=== PATIENT | male | born 1970 | race Caucasian/White ===

== ENCOUNTER 2020-01-06 23:07 | Emergency (ER) | payer OTHER ==
[~2020-01-06 23:07] MED LIST: LIDOCAINE PATCH REMOVAL MC SCH
--- NOTE | 2020-01-06 23:25 | PDOC ---
History of Present Illness - General Chief Complaint: Chest Pain Stated Complaint: L ARM NUMBNESS Time Seen by Provider: 01/06/20 23:25 - History of Present Illness Initial Comments: 01/06/20 23:42 49 year old man with a history of HTN, HLD, recent COVID dx (on eliquis) who presents with L arm numbness and some weakness with L shoulder pain worse today. 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 ROS GENERAL/CONSTITUTIONAL: No fever or chills. + weakness. HEAD, EYES, EARS, NOSE AND THROAT: No change in vision. No ear pain or discharge. No sore throat. CARDIOVASCULAR: No chest pain or shortness of breath RESPIRATORY: No cough, wheezing, or hemoptysis. GASTROINTESTINAL: No nausea, vomiting, diarrhea or constipation. GENITOURINARY: No dysuria, frequency, or change in urination. MUSCULOSKELETAL: + joint or muscle swelling or pain. No neck or back pain. SKIN: No rash NEUROLOGIC: No headache, vertigo, loss of consciousness, or change in strength/sensation. ENDOCRINE: No increased thirst. No abnormal weight change HEMATOLOGIC/LYMPHATIC: No anemia, easy bleeding, or history of blood clots. ALLERGIC/IMMUNOLOGIC: No hives or skin allergy. PE GENERAL: Awake, alert, and fully oriented, in no acute distress HEAD: No signs of trauma, normocephalic, atraumatic EYES: EOMI, sclera anicteric, conjunctiva clear ENT: oropharynx clear without exudates. Moist mucosa NECK: Normal ROM, supple LUNGS: No distress, speaks full sentences, clear to auscultation bilaterally HEART: Regular rate and rhythm, normal S1 and S2, no murmurs, rubs or gallops, peripheral pulses normal and equal bilaterally. L trapezius ttp ABDOMEN: Soft, nontender. No guarding, no rebound. No masses EXTREMITIES : Normal inspection, Normal range of motion, no edema. No clubbing or cyanosis. NEUROLOGICAL: Cranial nerves II through XII grossly intact. Normal speech, normal gait, + decreased sensation of the L arm SKIN: Warm, Dry, normal turgor, no rashes or lesions noted Assessment and Plan 49 year old man with a history of HTN, HLD, recent COVID dx (on eliquis) who presents with L arm numbness and some weakness with L shoulder pain worse today. Consider radiculopathy vs msk/spasm vs intracranial pathology Tlyneol and lidocaine patch for possible msk CT cervical spine: No acute fracture or traumatic malalignment. Minimal spondylosis. Straightening of cervical lordosis, possibly due to positioning or muscle spasm. Two right tracheal diverticula, the lower icompletely seen. CT head : wnl Patient complains of persistent change of sensation/numbness of the L arm Likely will admit for MRI and neuro workup Patient would like to AMA. Discussion held with daughter and Thai speaking nursing staff Risks of leaving AMA discussed with patient, including stroke, cardiac or respiratory arrest, permanent disability and . Patient expressed understanding, exhibited capacity and still decided to AMA. Strict return precautions provided Past History - Medical History Allergies/Adverse Reactions: Allergies Allergy/AdvReac Type Severity Reaction Status Date / Time No Known Allergies Allergy Verified 01/06/20 23:24 Cardiac Disorders: Yes COPD: No - Surgical History Cardiac Surgery: Yes - Psycho-Social/Smoking History Smoking History: Never smoked - Substance Abuse Hx (Audit-C & DAST Scrn) How often the patient has a drink containing alcohol: Never Score: In Men: 4 or > Positive; In Women: 3 or > Positive: 0 Screen Result (Pos requires Nsg. Audit-10AR): Negative In the last yr the pt used illegal drug/Rx for NonMed reason: No Score: Yes response is considered Positive: 0 Screen Result (Positive result requires Nsg. DAST-10): Negative *Physical Exam - Vital Signs Last Vital Signs Temp Pulse Resp BP Pulse Ox 98.0 F 66 18 134/90 99 01/06/20 23:22 01/06/20 23:22 01/06/20 23:22 01/06/20 23:22 01/06/20 23:22 ED Treatment Course - LABORATORY CBC & Chemistry Diagram: 01/06/20 23:48 01/06/20 23:48 Discharge - Discharge Information Problems reviewed: Yes Clinical Impression/Diagnosis: Left arm numbness Condition: Stable Disposition: AGAINST MEDICAL ADVICE - Follow up/Referral Referrals: Pedro Lomax MD [Primary Care Provider] - - Patient Discharge Instructions Patient Printed Discharge Instructions: DI for Numbness/tingling Additional Instructions: You were seen in the ER for complaints of left arm numbness Your CT head, cervical spine and labwork was within normal You still expressed numbness after lidocaine patch and pain control You desire a Neurology referral through your Family Doctor You express understanding that the risks of leaving against medical advise include, stroke, worsening deficit, heart attack, permanent disability or . You still wish to leave AMA Please see your Family Doctor within 5 days. Return to the ER if you have worsening numbness, weakness or any other concerning symptoms. Usted fue visto en la felipe de emergencias por quejas de entumecimiento del brazo noris Torres alden de CT, columna cervical y anlisis de laboratorio estaban dentro de lo normal An expres entumecimiento despus del parche de lidocana y el control del dolor. Desea mary ellen referencia de neurologa a travs de torres mdico de sonam Usted expresa torres comprensin de que los riesgos de abandonar el consejo mdico incluyen, accidente cerebrovascular, empeoramiento del dficit, ataque cardaco, discapacidad permanente o muerte. An deseas irte de AMA Consulte a torres mdico de sonam dentro de los 5 haider. Regrese a la felipe de emergencias si empeora el entumecimiento, la debilidad o cualquier otro sntoma relacionado. - Post Discharge Activity
[2020-01-06 23:28] VITALS: BP 134/90; PULSE 66; TEMP 98; BMI 29.9
--- NOTE | 2020-01-06 23:41 | PDOC ---
Attending Attestation - Resident Resident Name: Renee Williamson - ED Attending Attestation I have performed the following: I have examined & evaluated the patient, The case was reviewed & discussed with the resident, I agree w/resident's findings & plan - HPI HPI: 01/07/20 02:19 see resident hpi - Physicial Exam PE: 01/07/20 02:19 see resident exam - Medical Decision Making 01/07/20 02:19 49-year-old male with recent history of COVID-19 infection currently on anticoagulation complaining of pain to the left upper back and shoulder region with intermittent numbness to the left arm CT scans of the head and cervical spine show no significant acute abnormality Ultrasound shows no DVT In light of patient's age and recent COVID infection plan for observation and MRI for further evaluation/TIA work-up Discharge - Discharge Information Problems reviewed: Yes Clinical Impression/Diagnosis: Left arm numbness Condition: Stable Disposition: AGAINST MEDICAL ADVICE - Follow up/Referral Referrals: Pedro Lomax MD [Primary Care Provider] - - Patient Discharge Instructions Patient Printed Discharge Instructions: DI for Numbness/tingling Additional Instructions: You were seen in the ER for complaints of left arm numbness Your CT head, cervical spine and labwork was within normal You still expressed numbness after lidocaine patch and pain control You desire a Neurology referral through your Family Doctor You express understanding that the risks of leaving against medical advise include, stroke, worsening deficit, heart attack, permanent disability or . You still wish to leave AMA Please see your Family Doctor within 5 days. Return to the ER if you have worsening numbness, weakness or any other concerning symptoms. Usted fue visto en la felipe de emergencias por quejas de entumecimiento del brazo noris Marquis alden de CT, columna cervical y anlisis de laboratorio estaban dentro de lo normal An expres entumecimiento despus del parche de lidocana y el control del dolor. Desea mary ellen referencia de neurologa a travs de marquis mdico de sonam Usted expresa marquis comprensin de que los riesgos de abandonar el consejo mdico incluyen, accidente cerebrovascular, empeoramiento del dficit, ataque cardaco, discapacidad permanente o muerte. An deseas irte de AMA Consulte a marquis mdico de sonam dentro de los 5 haider. Regrese a la feilpe de emergencias si empeora el entumecimiento, la debilidad o cualquier otro sntoma relacionado. - Post Discharge Activity
[2020-01-06] MEDS ORDERED: ACETAMINOPHEN 325 MG TABLET (FP) PO ONE (23:44)
[2020-01-06] MEDS ORDERED: LIDOCAINE 5% TOPICAL PATCH TP ONE (23:44)
[2020-01-06 23:55] LABS: BASO % 0.3 % (0-2.0); EOS % 1.7 % (0-4.5); HEMATOCRIT 44.4 % (35.4-49); HEMOGLOBIN 14.4 GM/dL (11.7-16.9); LYMPH % 38.2 % (8-40); MCH 27.3 pg (25.7-33.7); MCHC 32.4 g/dl (32.0-35.9); MEAN CELL VOLUME 84.3 fl (80-96); MEAN PLT VOLUME 8.8 fl (7.5-11.1); MONO % 8.9 % (3.8-10.2); NEUT % 50.9 % (42.8-82.8); PLATELET COUNT 253 K/MM3 (134-434); RBC 5.27 M/mm3 (4.00-5.60); RDW 14.5 % (11.9-15.9); WHITE BLOOD COUNT 10.2 K/mm3 (4.0-10.0)
[2020-01-07 00:07] LABS: INR 1.28 (0.83-1.09); PROTHROMBIN TIME (PATIENT) 15.2 SEC (9.7-13.0)
[2020-01-07 00:10] LABS: ACTIVATED PTT 31.8 SECONDS (25.2-36.5)
[2020-01-07 00:39] LABS: ALBUMIN 3.7 g/dl (3.4-5.0); ALK PHOS 74 U/L (45-117); ANION GAP 5 MMOL/L (8-16); BILIRUBIN,TOTAL 0.2 mg/dL (0.2-1); BLOOD UREA NITROGEN 15.7 mg/dL (7-18); CHLORIDE 107 mmol/L (98-107); CO2 26 mmol/L (21-32); CREATININE 0.9 mg/dL (0.55-1.3); GLUCOSE,RANDOM 83 mg/dL (74-106); POTASSIUM 4.5 mmol/L (3.5-5.1); SGOT/AST 43 U/L (15-37); SGPT/ALT 65 U/L (13-61); SODIUM 138 mmol/L (136-145); TOT PROT 7.5 g/dl (6.4-8.2)
[2020-01-07] MEDS ORDERED: LIDOCAINE 5% TOPICAL PATCH ONE (00:41)
[2020-01-07] MEDS ORDERED: ACETAMINOPHEN 325 MG TABLET (FP) ONE (00:41)
--- NOTE | 2020-01-07 11:53 | EKG ---
Test Reason : Blood Pressure : / mmHG Vent. Rate : 059 BPM Atrial Rate : 059 BPM P-R Int : 160 ms QRS Dur : 098 ms QT Int : 402 ms P-R-T Axes : 059 025 008 degrees QTc Int : 397 ms SINUS BRADYCARDIA OTHERWISE NORMAL ECG NO PREVIOUS ECGS AVAILABLE Confirmed by LINNEA UMAÑA MD ([id number]) on 01/07/2020 11:52:47 AM Referred By: Confirmed By:LINNEA UMAÑA MD
== END 2020-01-07 02:45 | disposition left against medical advice (07) ==
LOC: JER 23:07
DX: R20.2 Paresthesia of skin (principal)
CPT/HCPCS: 36415; 70450-TC; 71045-TC-FY; 72125-TC; 80053; 84484; 85025; 85610; 85730; 93005; 93010; 93971; 99285-25

== ENCOUNTER 2020-01-30 02:52 | Inpatient (IN) | payer OTHER ==
[2020-01-30] MEDS ORDERED: DEXAMETHASONE SOD PHOSPHATE 10 MG/1 ML VIAL IVPUSH ONE (04:04)
[2020-01-30] MEDS ORDERED: DEXAMETHASONE SOD PHOSPHATE 10 MG/1 ML VIAL ONE (04:13)
--- NOTE | 2020-01-30 04:23 | PDOC ---
History of Present Illness - General Chief Complaint: Pain, Acute Stated Complaint: PAIN Time Seen by Provider: 01/30/20 03:16 History Source: Film Processing Supervisor Used ([id number]) Exam Limitations: Language Barrier - History of Present Illness Initial Comments: 01/30/20 04:09 Jorge Reddy is a 49 Y Khmer speaking M with a PMH of HTN, HLD, Covid + (on eliquis), presented with 2 months of worsening pain of L. shoulder radiating to the neck and arm. Churner service was used to communicate with the patient ([id number]). Patient reports that his pain started two months ago, has been progr essively getting worse. since 3days the pain has been unbearable. He is unable to sleep, sit still, or move around due to severe pain. He reports his pain is sharp and crampy, not relieved or worsened with anything. The pain is constant. It is associated with numbness below the elbow radiating to fingers, weakness of hand and fingers, and constant tingling sensation of the forearm and fingers. 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 Patient was here on 01/06/20 with the same complaint. CT cervical spine: minimal spondylosis, no acute fracture or traumatic malalignment. CT head: no acute intracranial pathology. Planed to admit for MRI and neuro eval, but patient refused further evaluation and decided to leave [place]. Patient reports that he has an outpatient neurology evaluation schedule for feb 28, but for 3d his pain has been unbearable and he cannot make it to . 01/30/20 04:23 01/30/20 06:25 Timing/Duration: getting worse Severity: severe Associated Symptoms: reports: weakness Past History - Medical History Allergies/Adverse Reactions: Allergies Allergy/AdvReac Type Severity Reaction Status Date / Time No Known Allergies Allergy Verified 01/30/20 02:59 Cardiac Disorders: Yes COPD: No HTN: Yes Hypercholesterolemia: Yes - Surgical History Cardiac Surgery: Yes - Psycho-Social/Smoking History Smoking History: Never smoked Have you smoked in the past 12 months: No Information on smoking cessation initiated: No - Substance Abuse Hx (Audit-C & DAST Scrn) How often the patient has a drink containing alcohol: Never Score: In Men: 4 or > Positive; In Women: 3 or > Positive: 0 Screen Result (Pos requires Nsg. Audit-10AR): Negative In the last yr the pt used illegal drug/Rx for NonMed reason: No Score: Yes response is considered Positive: 0 Screen Result (Positive result requires Nsg. DAST-10): Negative Review of Systems - Review of Systems Able to Perform ROS?: Yes Is the patient limited Fijian proficient: Yes Constitutional: No: Chills, Fever HEENTM: No: Blurred Vision, Nose Congestion, Throat Pain, Difficulty Swallowing Respiratory: No: Cough, Shortness of Breath, Wheezing Cardiac (ROS): No: Chest Pain, Lightheadedness, Palpitations ABD/GI: No: Constipated, Diarrhea, Nausea Musculoskeletal: Yes: Joint Pain (left shoulder pain. Limited ROM of left arm at shoulder due to pain.), Muscle Weakness (left arm + left fingers) Integumentary: Yes: Bruising. No: Change in Color, Dryness Neurological: Yes: Numbness (of left forearm and fingers), Paresthesia (left forearm and fingers), Tingling (left forearm and fingers), Weakness (left hand). No: Headache Hematologic/Lymphatic: Yes: Blood Clots (covid complications) *Physical Exam - Vital Signs Last Vital Signs Temp Pulse Resp BP Pulse Ox 98.4 F 70 20 151/97 97 01/30/20 02:57 01/30/20 02:57 01/30/20 02:57 01/30/20 02:57 01/30/20 02:57 - Physical Exam General Appearance: Yes: Nourished, Apparent Distress, Severe Distress HEENT: positive: EOMI, JEFF, Nasal Congestion, Rhinorrhea Neck: positive: Tender, Supple Respiratory/Chest: positive: Lungs Clear, Normal Breath Sounds. negative: Respiratory Distress, Crackles, Rales, Rhonchi Cardiovascular: positive: Regular Rhythm, Regular Rate, S1, S2. negative: Edema, JVD, Murmur Vascular Pulses: Carotid (R): 2+, Carotid (L): 2+, Dorsalis-Pedis (R): 2+, Doralis-Pedis (L): 2+ Gastrointestinal/Abdominal: positive: Normal Bowel Sounds, Soft. negative: Tender Musculoskeletal: positive: Decreased Range of Motion (at Neck, and left shoulder, elbow, due to pain). negative: Vertebral Tenderness Extremity: negative: Pedal Edema, Calf Tenderness Integumentary: negative: Bruising (No visible hematoma, bruising of left arm, shoulder, axilla(underarm)) Neurologic: positive: Fully Oriented, Alert, Sensory Deficit (decreased se nsation below elbow on L. UE). negative: Motor Strength 5/5 (Motor 5/5 on Right UE, 3/5 on L.UE) ED Treatment Course - LABORATORY CBC & Chemistry Diagram: 01/30/20 04:09 01/30/20 04:09 - RADIOLOGY Radiology Studies Ordered: Category Date Time Status CERVICAL SPINE CT W/O CONTR [CT] Stat CT Scan 01/30/20 04:04 Ordered CXRPORT [CHEST X-RAY PORTABLE*] [RAD] Stat Radiology 01/30/20 04:03 Ordered Medical Decision Making - Medical Decision Making 01/30/20 04:35 49 Y Khmer speaking M with a PMH of HTN, HLD, Covid + (on eliquis), presented with 2 months of worsening pain of L. shoulder radiating to the neck and arm. - Patient was seen at ER previously for same complaint - worsening of his pain, 3D of unbearable pain - Pain management with Percocet - Dexamethasone IV - CXR: No infiltrates - CBC, CMP, COVID, ESR, CRP - CT C-Spine: Small-mod left paracentral herniated disk C5-C6, Moderate bulging disk at C6-C7 - Patient will need a MRI for further evaluation - Dispo: Admit to [facility] 01/30/20 06:25 01/30/20 06:52 Discharge - Discharge Information Problems reviewed: Yes Clinical Impression/Diagnosis: Weakness, Neck pain Radiculopathy Qualifiers: Spinal region: cervical Qualified Code(s): M54.12 - Radiculopathy, cervical region - Follow up/Referral Referrals: Pedro Lomax MD [Primary Care Provider] - - Patient Discharge Instructions - Post Discharge Activity
[2020-01-30 04:40] LABS: BASO % 1.2 % (0-2.0); EOS % 2.4 % (0-4.5); HEMATOCRIT 42.4 % (35.4-49); HEMOGLOBIN 13.8 GM/dL (11.7-16.9); LYMPH % 33.5 % (8-40); MCH 27.6 pg (25.7-33.7); MCHC 32.5 g/dl (32.0-35.9); MEAN CELL VOLUME 84.7 fl (80-96); MEAN PLT VOLUME 9.2 fl (7.5-11.1); MONO % 11.4 % (3.8-10.2); NEUT % 51.5 % (42.8-82.8); PLATELET COUNT 224 K/MM3 (134-434); RBC 5.01 M/mm3 (4.00-5.60); RDW 14.5 % (11.9-15.9); WHITE BLOOD COUNT 7.1 K/mm3 (4.0-10.0)
--- NOTE | 2020-01-30 04:57 | PDOC ---
Attending Attestation - Resident Resident Name: Paula Dewey - ED Attending Attestation I have performed the following: I have examined & evaluated the patient, The case was reviewed & discussed with the resident, I agree w/resident's findings & plan, Exceptions are as noted - HPI HPI: 01/30/20 04:53 49 yo male h/o HTN , HLD covid positive on eliquis, here with c/o left arm pain. and weakness. has had for several months, however last 2 days pain has become unbearable. pt was seen last on 01/05 was offered admission for concerns for left arm weakness and possible mri, but pt refused and went home ama. here because pain is persistant. pt has had prior workup with ct head and neck, is on eliquis for h/o covid. no cp no sob. no n/v no leg weakness, pain starts left posterior neck, radiates down his arm. 01/30/20 06:37 - Physicial Exam PE: 01/30/20 06:39 awake alert lungs clear bilat heart rrr no mrg abd soft nt nd ext wwp. left upper ext 4/5 ext/ flex, decreased sensation to light touch. right arm 5/5 bilat lower ext 5/5. skin warm and dry no rash. alert oriented x 3. - Medical Decision Making 01/30/20 06:40 49 yo male h/o htn hld here with left arm weakness pain. plan repeat ct head c spine labs ct head negative. ct spine shows heriated disc. pt will require MRI. given dose of decadron here. mri ordered. will admit Heart Score/ECG Review #1 General ECG Interpretation: Sinus Rhythm, Normal Rate (62), Normal Intervals, No acute ischemic changes Discharge - Discharge Information Problems reviewed: Yes Clinical Impression/Diagnosis: Weakness, Neck pain - Admission Yes - Follow up/Referral Referrals: Pedro Lomax MD [Primary Care Provider] - - Patient Discharge Instructions - Post Discharge Activity
[2020-01-30 05:18] LABS: ALBUMIN 3.3 g/dl (3.4-5.0); ALK PHOS 66 U/L (45-117); ANION GAP 4 MMOL/L (8-16); BILIRUBIN,TOTAL 0.4 mg/dL (0.2-1); BLOOD UREA NITROGEN 16.4 mg/dL (7-18); CALCIUM 8.4 mg/dL (8.5-10.1); CHLORIDE 111 mmol/L (98-107); CO2 26 mmol/L (21-32); CREATININE 0.9 mg/dL (0.55-1.3); GLUCOSE,RANDOM 165 mg/dL (74-106); POTASSIUM 4.1 mmol/L (3.5-5.1); SGOT/AST 26 U/L (15-37); SGPT/ALT 46 U/L (13-61); SODIUM 141 mmol/L (136-145); TOT PROT 6.6 g/dl (6.4-8.2)
--- NOTE | 2020-01-30 10:09 | HP ---
CHIEF COMPLAINT: pain and weakness of LUE PCP: HISTORY OF PRESENT ILLNESS: 49M w/ pmh of right-handedness, HTN, HLD, h/o leg DVT, CAD sp coronary cath(Mar 2019) presents with complaint of worsened Left arm pain for the last 3days. Has had over 2months of Left arm shooting cramping pain that radiates down to his hands and associated weakness, numbness and decreased sensation. Has trouble lifting a 2L bottle of soda. Denies any recent trauma, MVC, falls, sudden jerking motions to his arms. Sleeps on his back in a bed, doesn't sleep with his arm draped over anything. 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 Lives with his children and grandson. [employer] [id number] ER course was notable for: (1) WBC 7.1, ESR 2(N) (2) CTH: neg acute. CT cspine: C5-C6 minimal central/right paracentral disc osteophyte complex w/o cord or nerve toot impingement. C6-C7 mild DJD and mild mainly right paracentral disc osteophyte complex w/o cord impingement. Mimial right uncovertebral hypertrophy slightly narrowing the Right foramen. (3) sp percocet, oxycodone, decadron 10mg IVP Recent Travel: PAST MEDICAL HISTORY: as above PAST SURGICAL HISTORY: coronary cath Social History: Smoking: denies Alcohol: denies Drugs: denies Allergies No Known Allergies Allergy (Verified 01/30/20 02:59) HOME MEDICATIONS: REVIEW OF SYSTEMS CONSTITUTIONAL: Absent: fever, chills, diaphoresis, generalized weakness, malaise, loss of appetite, weight change HEENT: Absent: rhinorrhea, nasal congestion, throat pain, throat swelling, difficulty swallowing, mouth swelling, ear pain, eye pain, visual changes CARDIOVASCULAR: Absent: chest pain, syncope, palpitations, irregular heart rate, lightheadedness, peripheral edema RESPIRATORY: Absent: cough, shortness of breath, dyspnea with exertion, orthopnea, wheezing, stridor, hemoptysis GASTROINTESTINAL: Absent: abdominal pain, abdominal distension, nausea, vomiting, diarrhea, constipation, melena, hematochezia GENITOURINARY: Absent: dysuria, frequency, urgency, hesitancy, hematuria, flank pain, genital pain MUSCULOSKELETAL: weakness of LUE, numbness of LUE Absent: myalgia, arthralgia, joint swelling, back pain, neck pain SKIN: Absent: rash, itching, pallor HEMATOLOGIC/IMMUNOLOGIC: Absent: easy bleeding, easy bruising, lymphadenopathy, frequent infections ENDOCRINE: Absent: unexplained weight gain, unexplained weight loss, heat intolerance, cold intolerance NEUROLOGIC: Absent: headache, focal weakness or paresthesias, dizziness, unsteady gait, seizure, mental status changes, bladder or bowel incontinence PSYCHIATRIC: Absent: anxiety, depression, suicidal or homicidal ideation, hallucinations. PHYSICAL EXAMINATION Vital Signs - 24 hr 01/30/20 01/30/20 01/30/20 02:57 04:19 06:28 Temperature 98.4 F Pulse Rate 70 Pulse Rate [ 58 L 60 Apical] Respiratory 20 17 18 Rate Blood Pressure 151/97 Blood Pressure 134/86 113/75 [Left Arm] O2 Sat by Pulse 97 99 97 Oximetry (%) 01/30/20 01/30/20 09:01 09:31 Temperature 98.2 F Pulse Rate Pulse Rate [ 68 Apical] Respiratory 17 Rate Blood Pressure Blood Pressure 125/82 [Left Arm] O2 Sat by Pulse 97 97 Oximetry (%) GENERAL: Awake, alert, and fully oriented, in no acute distress. HEAD: Normal with no signs of trauma. EYES: sclera anicteric, conjunctiva clear. EARS, NOSE, THROAT: Ears normal, nares patent, oropharynx clear without exudates. Moist mucous membranes. NECK: Normal range of motion, supple without lymphadenopathy, JVD, or masses. No midline tenderness of Cspine LUNGS: Breath sounds equal, clear to auscultation bilaterally. No wheezes, and no crackles. No accessory muscle use. HEART: Regular rate and rhythm, normal S1 and S2 without murmur, rub or gallop. ABDOMEN: Soft, nontender, not distended, no guarding, no rebound. MUSCULOSKELETAL: Normal passive ROM of upper and lower extremities UPPER EXTREMITIES: 2+ pulses, warm, well-perfused. No cyanosis. No clubbing. No peripheral edema. LOWER EXTREMITIES: 2+ pulses, warm, well-perfused. No calf tenderness. No peripheral edema. NEUROLOGICAL: Cranial nerves II-XII intact. Normal speech. LUE w/ 3/5 police inspector, 3/5 elbbow flexion/extension, 3/5 shoulder AB/ADduction. Mildly decreased muscle bulk of LUE compared to RUE Laboratory Results - last 24 hr 01/30/20 01/30/20 01/30/20 04:09 04:09 04:09 WBC 7.1 RBC 5.01 Hgb 13.8 Hct 42.4 MCV 84.7 MCH 27.6 MCHC 32.5 RDW 14.5 Plt Count 224 MPV 9.2 Absolute Neuts (auto) 3.6 Neutrophils % 51.5 Lymphocytes % 33.5 Monocytes % 11.4 H Eosinophils % 2.4 Basophils % 1.2 D Nucleated RBC % 0 ESR 2 Sodium 141 Potassium 4.1 Chloride 111 H Carbon Dioxide 26 Anion Gap 4 L BUN 16.4 Creatinine 0.9 Est GFR (CKD-EPI)AfAm 115.02 Est GFR (CKD-EPI)NonAf 99.24 Random Glucose 165 H Calcium 8.4 L Total Bilirubin 0.4 AST 26 ALT 46 Alkaline Phosphatase 66 Total Protein 6.6 Albumin 3.3 L ASSESSMENT/PLAN: 49M w/ pmh of right-handedness, HTN, HLD, h/o leg DVT, CAD sp coronary cath(Mar 2019) presents with complaint of worsened Left arm pain for the last 3days. Has had over 2months of Left arm shooting cramping pain that radiates down to his hands and associated weakness, numbness and decreased sensation. Has trouble lifting a 2L bottle of soda. Denies any recent trauma, MVC, falls, sudden jerking motions to his arms. Sleeps on his back in a bed, doesn't sleep with his arm draped over anything. 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 Lives with his children and grandson. [facility] [id number] #DESTINIE pain and weakness --possibly 2/2 to brachial plexitis, less likely cervical radiculopathy(Right-sided CT findings, but Left-sided complaints) - pain regimen: acetaminophen 650mg PRN, flexeril 10mg TID PRN, gabapentin 300mg TID luis - Neurosurgery Consult(Caleb Dexter): --pt complaints are Left-sided but imaging findings have Right-sided cervical pathology; cervical CT findings are unlikely the etiol --rec MRI cspine to r/o L-sided patholgoty --rec Neuro for EMG/MCS to eval for brachial plexitis vs radiculopathy --rec neurontin 300 TID for neuropathic pain --rec PT/ROM/strengthening #CAD --not an active issue - cw home ASA, atorvastin 40, metoprolol 12.5 BID, lisinopril 5 #chronic BPH? - cw home tamsulosin 0.4mg #chronic HTN - cw home regimen FEN - no IVF - sodium-controlled diet DVT PPX - Eliquis(already taken for DVT hx) Family Medical History Family History: Denies Visit type - Emergency Visit Emergency Visit: Yes ED Registration Date: 01/30/20 Care time: The patient presented to the Emergency Department on the above date and was hospitalized for further evaluation of their emergent condition. - New Patient This patient is new to me today: Yes Date on this admission: 01/30/20 - Critical Care Critical Care patient: No ATTENDING PHYSICIAN STATEMENT I saw and evaluated the patient. I reviewed the resident's note and discussed the case with the resident. I agree with the resident's findings and plan as documented. SUBJECTIVE: OBJECTIVE: ASSESSMENT AND PLAN:
--- NOTE | 2020-01-30 11:29 | PN ---
Progress Note (short form) - Note Progress Note: NEUROSURGERY CONSULT DICTATED Chart reviewed Pt examined CT brain/C spine reviewed History obtained Covid + previously; non-smoker 3-4 months h/o L neck pain to shoulder and arm and forearm, + weakness and numbness; denies trauma PE: AF, VSS General- unremarkable, decreased L shoulder ROM (abduction 90 degrees); 2+ pulses throughout CN-intact; Motor- 5/5 except L UE 3-4- throughout; Sensation- decreased L LE to LT; DTR- 1+ Labs reviewed, Covid serology pending CT head- negative for acute pathology CT C spine- spondylosis, DDD C5-6 and C6-7 > C4-5; no fx, C5-6 posterior vertebral osteophyte, also R C6-7 paracentral disc partially calcified; no canal or foramenal compromise; no cord impingement Cervical spondylosis and DDD CT findings mostly R sided and pt symptoms are exclusively L sided, thus C spine CT findings cannot be the cause of his symptoms Recommend C spine MRI to r/o L sided pathology Neurology input including EMG/NCS to r/o brachial plexitis vs radiculopathy Neurontin 300 tid for neuropathic pain PT/ROM/strengthening
[2020-01-30] MEDS: ACETAMINOPHEN 325 MG TABLET (FP) PO PRN ×2 (11:45→21:29)
--- NOTE | 2020-01-30 12:17 | CONS ---
DATE OF CONSULTATION: 01/30/2020 CHIEF COMPLAINT: Left-sided neck pain, left upper extremity weakness and pain. HISTORY OF PRESENT ILLNESS: The patient is a 49-year-old right-handed male with history of hypertension, hypercholesterolemia, mild obesity, and prior COVID-19 infection, who complains of several-month history of severe left-sided neck pain with pain going down to his left shoulder as well as left forearm. There is associated weakness and periodic numbness. He denies Lhermitte sign and has no bowel or bladder dysfunction. He stated that the pain has been very severe, especially over the past month. He was in fact admitted about 1 month ago but signed out AMA prior to completion of cervical spine MRI examination. Presently, his pain is predominantly in the shoulder and the left forearm. He has decreased range of motion of the left arm. He denies fever or chills, nor any cough. PAST MEDICAL HISTORY: Significant for COVID-19 positive, hypertension, hypercholesterolemia. CURRENT MEDICATIONS: Include Flexeril, subcutaneous heparin, and Tylenol. ALLERGIES: There are no known drug allergies. FAMILY HISTORY: Noncontributory. SOCIAL HISTORY: He does not smoke and only drinks alcohol minimally. He lives at home. 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 REVIEW OF SYSTEMS: Otherwise negative for major constitutional, head and neck, cardiovascular, pulmonary, gastrointestinal, genitourinary, endocrinological, neurological, psychological problems except for the above. PHYSICAL EXAMINATION: Vital Signs: His temperature is 98.2. Blood pressure is 125/82 with pulse rate of 68. O2 saturation is 97% on room air. HEENT: Examination shows him to be normocephalic, atraumatic, anicteric. Neck: Supple. He has left-sided cervical paraspinal muscle spasm. Coronary: Examination demonstrated a regular rhythm. Lungs: Clear bilaterally. Abdomen: Benign. Extremities: Examination shows no signs of DVT. Neurologic: He is awake and alert, oriented x3. He is Afghan speaking. Cranial nerve examination is intact II-XII. Motor examination shows 5/5 strength in the right upper and bilateral lower extremities. Entire left upper extremity including deltoid, supraspinatus, infraspinatus, biceps, brachioradialis, triceps, wrist extensor, and hand intrinsic muscles are all approximately 3 to 4-/5, somewhat pain limited. Sensory examination demonstrated nondermatomal numbness of the left upper extremity. Deep tendon reflexes are 2+ throughout. There is no pathological long tract sign. Cerebellar examination demonstrated no tremor, and he has intact [id number] examination. Gait was not tested for safety reasons. LABORATORY: Examination shows a white blood cell count of 7.1. Hemoglobin was 13.8, and platelet count is 224,000. ESR is 2. C-reactive protein is pending. Serum sodium is 141 and potassium is 4.1. BUN is 16, creatinine 0.9. Albumin is 3.3. COVID-[address] scan of the head done earlier this morning demonstrated no acute intracranial pathology. Specifically, there is no fracture or hemorrhage or large territorial stroke. CT scan of the cervical spine demonstrated satisfactory alignment with no fracture or dislocation. There is degenerative disk disease at C5-C6 and C6-C7 with associated spondylosis. There is right-sided C6-C7 paracentral disk herniation with associated osteophytes, with associated uncovertebral joint hypertrophy. There is also C5-C6 broad based disk bulge with some mild osteophyte. There is no significant spinal stenosis or foraminal stenosis. IMPRESSION: 1. C5-C6 and C6-C7 degenerative disk disease with spondylosis, with right C6-C7 chronic paracentral disk protrusion. 2. Left upper extremity pain, weakness, and numbness in a nonradicular pattern, rule out brachial plexitis. 3. Hypertension. 4. Hypercholesterolemia. 5. Obesity. 6. COVID-19 positive previously. RECOMMENDATIONS: The patient presents with several-month history of left-sided neck pain, shoulder pain, and left forearm pain. He has generalized pain as well as weakness and numbness of the left upper extremity. There is no involvement in his right upper extremity at all. CT scan was fairly benign, and there is no canal or foraminal compromise. Even where there is pathology, it is predominantly right-sided, especially at the right side of C6-C7. This cannot be the cause of his left-sided symptoms. MRI of the cervical spine is recommended. A trial of neurotrophic agent such as gabapentin could also be helpful. A course of physical therapy could be considered as well. I will recommend a neurology consultation with possible outpatient EMG and nerve conduction study to better delineate the cause of his current pathology. The above was discussed with the patient at bedside. The care of the patient was also discussed with the patient's rounding medical team at bedside. All questions were answered. SONAM VENTURA M.D. ESTEFANY/[id number] MTDD
[2020-01-30 13:17] VITALS: BMI 30.9
[2020-01-30] MEDS ORDERED: CYCLOBENZAPRINE HCL 10 MG TABLET (FP) PO SCH (14:00)
[2020-01-30] MEDS: GABAPENTIN 300 MG CAPSULE PO SCH ×2 (14:42→21:26)
[2020-01-30] MEDS: ASPIRIN 81 MG CHEWABLE TABLETS PO SCH (14:42)
[2020-01-30] MEDS: TAMSULOSIN HCL 0.4 MG CAP PO SCH (14:42)
[2020-01-30] MEDS: METOPROLOL TARTRATE 25 MG TABLET (FP) PO SCH ×2 (14:43→21:27)
[2020-01-30] MEDS: LISINOPRIL 5 MG TABLET PO SCH (14:44)
[2020-01-30 14:45] LABS: URINE APPEARANCE CLEAR; URINE BILIRUBIN NEGATIVE (NEGATIVE); URINE COLOR YELLOW; URINE GLUCOSE (UA) 1+ (NEGATIVE); URINE KETONE NEGATIVE (NEGATIVE); URINE LEUK ESTERASE NEGATIVE (NEGATIVE); URINE NITRITE NEGATIVE (NEGATIVE); URINE PROTEIN NEGATIVE (NEGATIVE); URINE UROBILINOGEN 0.2 mg/dL (0.2-1.0)
--- NOTE | 2020-01-30 15:13 | PN ---
Teaching Attending Note Name of Resident: Joe Melgoza ATTENDING PHYSICIAN STATEMENT I saw and evaluated the patient. I reviewed the resident's note and discussed the case with the resident. I agree with the resident's findings and plan as documented. SUBJECTIVE: Complains of ongoing L sided neck and shoulder pain with altered sensation/weakness RLE. No history of trauma. No neck stiffness/photophobia/fever/chills. OBJECTIVE: Afebrile, Hemodynamically Stable. Last Vital Signs Temp Pulse Resp BP Pulse Ox 98.1 F 58 L 18 110/66 96 01/30/20 10:42 01/30/20 10:42 01/30/20 10:42 01/30/20 10:42 01/30/20 10:42 HEENT - Atraumatic, Normocephalic. Heart - S1, S2, RRR Lungs - clear to auscultation Abdomen -Soft, non-tender. Bowel Sounds normal. Extremities - no edema, no calf tenderness. Neuro - AAO x 3. Power reduced/Sensation altered LUE Laboratory Results - last 24 hr 01/30/20 01/30/20 01/30/20 04:09 04:09 04:09 WBC 7.1 RBC 5.01 Hgb 13.8 Hct 42.4 MCV 84.7 MCH 27.6 MCHC 32.5 RDW 14.5 Plt Count 224 MPV 9.2 Absolute Neuts (auto) 3.6 Neutrophils % 51.5 Lymphocytes % 33.5 Monocytes % 11.4 H Eosinophils % 2.4 Basophils % 1.2 D Nucleated RBC % 0 ESR 2 Sodium 141 Potassium 4.1 Chloride 111 H Carbon Dioxide 26 Anion Gap 4 L BUN 16.4 Creatinine 0.9 Est GFR (CKD-EPI)AfAm 115.02 Est GFR (CKD-EPI)NonAf 99.24 Random Glucose 165 H Calcium 8.4 L Total Bilirubin 0.4 AST 26 ALT 46 Alkaline Phosphatase 66 Total Protein 6.6 Albumin 3.3 L Urine Color Urine Appearance Urine pH Ur Specific [place] Urine Protein Urine Glucose (UA) Urine Ketones Urine Blood Urine Nitrite Urine Bilirubin Urine Urobilinogen Ur Leukocyte Esterase 01/30/20 14:08 WBC RBC Hgb Hct MCV MCH MCHC RDW Plt Count MPV Absolute Neuts (auto) Neutrophils % Lymphocytes % Monocytes % Eosinophils % Basophils % Nucleated RBC % ESR Sodium Potassium Chloride Carbon Dioxide Anion Gap BUN Creatinine Est GFR (CKD-EPI)AfAm Est GFR (CKD-EPI)NonAf Random Glucose Calcium Total Bilirubin AST ALT Alkaline Phosphatase Total Protein Albumin Urine Color Yellow Urine Appearance Clear Urine pH 6.0 Ur Specific [place] 1.019 Urine Protein Negative Urine Glucose (UA) 1+ H Urine Ketones Negative Urine Blood Negative Urine Nitrite Negative Urine Bilirubin Negative Urine Urobilinogen 0.2 Ur Leukocyte Esterase Negative Current Medications Generic Name Dose Route Start Last Admin Trade Name Freq PRN Reason Stop Dose Admin Acetaminophen 650 mg 01/30/20 10:02 01/30/20 11:45 Tylenol - PO 650 mg Q4H PRN Administration PAIN LEVEL 6-10 Apixaban 5 mg 01/30/20 22:00 Eliquis - PO BID [facility] Aspirin 81 mg 01/30/20 13:15 01/30/20 14:42 Asa - PO 81 mg DAILY JOHN Administration Atorvastatin Calcium 40 mg 01/30/20 22:00 Lipitor - PO HS [facility] Cyclobenzaprine HCl 10 mg 01/30/20 11:25 Flexeril - PO TID PRN PAIN LEVEL 6-10 Gabapentin 300 mg 01/30/20 14:00 01/30/20 14:42 Neurontin - PO 300 mg TID [facility] Administration Heparin Sodium (Porcine) 5,000 unit 01/30/20 22:00 Heparin - SQ TID [facility] Lisinopril 5 mg 01/30/20 13:15 01/30/20 14:44 Prinivil PO 5 mg DAILY JOHN Administration Metoprolol Tartrate 12.5 mg 01/30/20 13:15 01/30/20 14:43 Lopressor - PO 12.5 mg BID JOHN Administration Tamsulosin HCl 0.4 mg 01/30/20 13:15 01/30/20 14:42 Flomax - PO 0.4 mg 0830 JOHN Administration Home Medications Medication Instructions Recorded Apixaban [Eliquis] 5 mg PO BID 01/30/20 Aspirin [ASA -] 81 mg PO DAILY 01/30/20 Atorvastatin Ca [Lipitor] 40 mg PO HS 01/30/20 Diclofenac Sodium [Voltaren] 100 gm TP BID 01/30/20 Lisinopril [Prinivil] 5 mg PO DAILY 01/30/20 Metoprolol Tartrate 12.5 mg PO BID 01/30/20 Tamsulosin HCl [Flomax] 0.4 mg PO DAILY 01/30/20 ASSESSMENT AND PLAN: 49 year old male with history of HTN, HLD, COVID postive (on Eliquis), presented with 2 month history of worsening neck and LUE pain, altered sensation, and weakness, CT head - no acute pathology. CT C Spine - C5/6 cervical disc osteophytic complex, C6/7 DJD and R paravertebral disc oseophyte complex. No cord or nerve root compression. 1. Neck/LUE pain with associated weakness and altered sensation CT C-spine as above L sided symptoms not corresponding to R sided imaging findings. Flexeril PRN Evaluated by Vascular Surgery - recommend C-Spine MRI to rule out L sided pathology, Neurontin for Neuropathic pain Depending on MRI findings, may need out-patient Neuro eval for EMG and nerve conduction studies ?brachial plexus pathology. PT Trial of Flexeril PRN and Gabapentin TID. 2. HTN - Continue Lisinopril, Metoprolol. 3. HLD - Continue Lipitor. 4. BPH - continue Tamsulosin. 5. Recent COVID infection - on Eliquis - no respiratory distress or hypoxia - continue Eliquis. DVT PX - on Eliquis.
[2020-01-30] MEDS: CYCLOBENZAPRINE HCL 10 MG TABLET (FP) PO PRN ×2 (18:25→21:30)
[2020-01-30] MEDS: APIXABAN 5 MG TABLET PO SCH (21:26)
[2020-01-30] MEDS ORDERED: HEPARIN NA (PORCINE) 5,000 UNITS/ML 1ML VIAL SQ SCH (22:00)
[2020-01-30] MEDS ORDERED: ATORVASTATIN CA 40 MG TABLET (FP) PO SCH (22:00)
[2020-01-31] MEDS: GABAPENTIN 300 MG CAPSULE PO SCH ×2 (05:50→14:44)
[2020-01-31 09:18] LABS: HEMATOCRIT 44.3 % (35.4-49); HEMOGLOBIN 14.2 GM/dL (11.7-16.9); MCH 27.3 pg (25.7-33.7); MCHC 32.1 g/dl (32.0-35.9); MEAN CELL VOLUME 85.1 fl (80-96); MEAN PLT VOLUME 9.2 fl (7.5-11.1); PLATELET COUNT 241 K/MM3 (134-434); RBC 5.21 M/mm3 (4.00-5.60); RDW 14.6 % (11.9-15.9); WHITE BLOOD COUNT 18.9 K/mm3 (4.0-10.0)
[2020-01-31 09:54] LABS: BLOOD UREA NITROGEN 15.7 mg/dL (7-18); CALCIUM 8.8 mg/dL (8.5-10.1); CREATININE 0.8 mg/dL (0.55-1.3); MAGNESIUM 2.2 mg/dL (1.8-2.4); PHOSPHOROUS 3.8 mg/dL (2.5-4.9); POTASSIUM 4.6 mmol/L (3.5-5.1)
[2020-01-31] MEDS: METOPROLOL TARTRATE 25 MG TABLET (FP) PO SCH (10:19)
[2020-01-31] MEDS: LISINOPRIL 5 MG TABLET PO SCH (10:19)
[2020-01-31] MEDS: APIXABAN 5 MG TABLET PO SCH (10:19)
[2020-01-31] MEDS: TAMSULOSIN HCL 0.4 MG CAP PO SCH (10:19)
[2020-01-31] MEDS: ASPIRIN 81 MG CHEWABLE TABLETS PO SCH (10:23)
--- NOTE | 2020-01-31 10:43 | PN ---
Progress Note (short form) - Note Progress Note: NEUROSURGERY Covid + previously; non-smoker 3-4 months h/o L neck pain to shoulder and arm and forearm, + weakness and numbness; denies trauma; pain better than yesterday PE: Tmax 98.1, AF, VSS General- unremarkable, decreased L shoulder ROM (abduction 90 degrees); 2+ pulses throughout CN-intact; Motor- 5/5 except L UE 4-4+ throughout/iproved; Sensation- decreased L LE to LT; DTR- 1+ WBC 18.9, Covipreviously 7.4, Covid serology pending CT head- negative for acute pathology CT C spine- spondylosis, DDD C5-6 and C6-7 > C4-5; no fx, C5-6 posterior vertebral osteophyte, also R C6-7 paracentral disc partially calcified; no canal or foramenal compromise; no cord impingement CS MRI- mild LC4-5 and C5-6 foramenal narrowing due to uncovertebral joint and facet hypertrophy; chronic R C6-7 paracentral disc protrusion Cervical spondylosis and DDD and foramenal narrowing L C4-5 and C5-6 ? cause of leukocytosis - communicated with RN to remind hospitalist team to address this Neurology input including EMG/NCS to r/o brachial plexitis vs radiculopathy Cont Neurontin 300 mg tid for neuropathic pain PT/ROM/modalities/strengthening Pain management input for elective cervical PATSY could be considered if persistent pain As pt is on eliquis/asa surgical intervention is not safe nor feasible
--- NOTE | 2020-01-31 12:56 | PN ---
Progress Note (short form) - Note Progress Note: SUBJECTIVE: Complains of ongoing L sided neck and shoulder pain with altered sensation/weakness RLE. No history of trauma. No neck stiffness/photophobia/fever/chills. OBJECTIVE: Afebrile, Hemodynamically Stable. HEENT - Atraumatic, Normocephalic. Heart - S1, S2, RRR Lungs - clear to auscultation Abdomen -Soft, non-tender. Bowel Sounds normal. Extremities - no edema, no calf tenderness. Neuro - AAO x 3. Power reduced/Sensation altered LUE ASSESSMENT AND PLAN: 49 year old male with history of HTN, HLD, COVID postive (on Eliquis), presented with 2 month history of worsening neck and LUE pain, altered sensation, and weakness, CT head - no acute pathology. CT C Spine - C5/6 cervical disc osteophytic complex, C6/7 DJD and R paravertebral disc oseophyte complex. No cord or nerve root compression. 1. Neck/LUE pain with associated weakness and altered sensation CT C-spine as above L sided symptoms not corresponding to R sided imaging findings. Flexeril PRN Evaluated by Vascular Surgery - recommend C-Spine MRI to rule out L sided pathology, Neurontin for Neuropathic pain Depending on MRI findings, may need out-patient Neuro eval for EMG and nerve conduction studies ?brachial plexus pathology. PT Trial of Flexeril PRN and Gabapentin TID. 2. HTN - Continue Lisinopril, Metoprolol. 3. HLD - Continue Lipitor. 4. BPH - continue Tamsulosin. 5. Recent COVID infection - on Eliquis - no respiratory distress or hypoxia - continue Eliquis. DVT PX - on Eliquis.
--- NOTE | 2020-01-31 13:14 | DS ---
Physical Exam: SUBJECTIVE: Improving L sided neck and shoulder pain with altered sensation/weakness RLE. No history of trauma. No neck stiffness/photophobia/fev er/chills. OBJECTIVE: Afebrile, Hemodynamically Stable. Last Vital Signs Temp Pulse Resp BP Pulse Ox 97.8 F 56 L 18 112/68 100 01/31/20 05:52 01/31/20 11:00 01/31/20 11:00 01/31/20 11:00 01/31/20 11:00 HEENT - Atraumatic, Normocephalic. Heart - S1, S2, RRR Lungs - clear to auscultation Abdomen -Soft, non-tender. Bowel Sounds normal. Extremities - no edema, no calf tenderness. Neuro - AAO x 3. Power reduced/Sensation altered LUE MS - No CSpine tenderness. Laboratory Results - last 24 hr 01/30/20 01/30/20 01/31/20 04:09 14:08 08:48 WBC 18.9 H RBC 5.21 Hgb 14.2 Hct 44.3 MCV 85.1 MCH 27.3 MCHC 32.1 RDW 14.6 Plt Count 241 MPV 9.2 Sodium Potassium Chloride Carbon Dioxide Anion Gap BUN Creatinine Est GFR (CKD-EPI)AfAm Est GFR (CKD-EPI)NonAf Random Glucose Calcium Phosphorus Magnesium C-Reactive Protein < 0.3 TSH Urine Color Yellow Urine Appearance Clear Urine pH 6.0 Ur Specific [place] 1.019 Urine Protein Negative Urine Glucose (UA) 1+ H Urine Ketones Negative Urine Blood Negative Urine Nitrite Negative Urine Bilirubin Negative Urine Urobilinogen 0.2 Ur Leukocyte Esterase Negative 01/31/20 08:48 WBC RBC Hgb Hct MCV MCH MCHC RDW Plt Count MPV Sodium 142 Potassium 4.6 Chloride 110 H Carbon Dioxide 25 Anion Gap 7 L BUN 15.7 Creatinine 0.8 Est GFR (CKD-EPI)AfAm 120.72 Est GFR (CKD-EPI)NonAf 104.16 Random Glucose 110 H Calcium 8.8 Phosphorus 3.8 Magnesium 2.2 C-Reactive Protein TSH 0.35 L Urine Color Urine Appearance Urine pH Ur Specific [place] Urine Protein Urine Glucose (UA) Urine Ketones Urine Blood Urine Nitrite Urine Bilirubin Urine Urobilinogen Ur Leukocyte Esterase Discharge Medications Medication Instructions Recorded Apixaban [Eliquis] 5 mg PO BID 01/30/20 Aspirin [ASA -] 81 mg PO DAILY 01/30/20 Atorvastatin Ca [Lipitor] 40 mg PO HS 01/30/20 Diclofenac Sodium [Voltaren] 100 gm TP BID 01/30/20 Lisinopril [Prinivil] 5 mg PO DAILY 01/30/20 Metoprolol Tartrate 12.5 mg PO BID 01/30/20 Tamsulosin HCl [Flomax] 0.4 mg PO DAILY 01/30/20 Gabapentin [Neurontin -] 300 mg PO TID 30 Days #90 capsule 01/31/20 Date of Admission:01/30/20 Date of Discharge: 01/31/20 Minutes to complete discharge: 40 Discharge Summary Problems reviewed: Yes Reason For Visit: WEAKNESS / NECK PAIN Current Active Problems Neck pain (Acute) Radiculopathy (Acute) Weakness (Acute) Hospital Course: 49 year old male with history of HTN, HLD, COVID postive (on Eliquis), presented with 2 month history of worsening neck and LUE pain, altered sensation, and weakness, CT head - no acute pathology. CT C Spine - C5/6 cervical disc osteophytic complex, C6/7 DJD and R paravertebral disc oseophyte complex. No cord or nerve root compression. CS MRI- mild LC4-5 and C5-6 foramenal narrowing due to uncovertebral joint and facet hypertrophy; chronic R C6-7 paracentral disc protrusion Cervical spondylosis and DDD and foramenal narrowing L C4-5 and C5-6 1. Neck/LUE pain with associated weakness and altered sensation CT/MRI C-spine as above L sided symptoms not corresponding to R sided imaging findings. Evaluated by Vascular Surgery - no need for neurosurgical intervention, recommend Neurontin for Neuropathic pain and out-patient Neurology eval for EMG and nerve conduction studies ?brachial plexus pathology. For trial of Gabapentin TID and out-patient Neurology referral. 2. HTN - Continue Lisinopril, Metoprolol. 3. HLD - Continue Lipitor. 4. BPH - continue Tamsulosin. 5. Recent COVID infection - on Eliquis - no respiratory distress or hypoxia - continue Eliquis. 6. Low TSH, 0.35 - free T4 added on. to follow with PCP and endocrinology as out-patient for result and further eval/work-up. Medically and neurologically stable for discharge with Neurology and Neurosurgery follow up. Condition: Stable - Instructions Diet, Activity, Other Instructions: You were admitted with neck pain radiating to your shoulder and Left arm, with associated weakness and sensory changes. You were evaluated by Dr. Dexter of Neurosurgery after having C-Spine CT and MRI and found not to have any acute issues requiring neurosurgical intervention. You are advised to follow with a neurologist for further work-up including Electromyography/Nerve conduction studies to help with further diagnosis. In the interim you will be discharged on a trial of Gabapentin with Neurology and Neurosurgery follow ups. You were also found to have low TSH (thyroid function) - you will be referred to Endocrinology for further evaluation as an out-patient. Please follow up with 1. Dr. Caleb Dexter - Neurosurgery 2. Dr. Ashton - Neurology 3. Dr. Sellers - Endocrinology 4. Dr. Lomax - PCP for follow up of your thyroid function and general health maintenance. Please have a repeat CBC labwork performed next week to ensure normalization of your white blood cells. Referrals: Dhruv Ashton DO [Staff Physician] - 1 Week (Neurosurgery recommends neurology eval for EMG/nerve conduction studies for LUE weakness/altered sensation/pain) Caleb Dexter MD [Staff Physician] - 1 Week (Follow up for Neck and LUE pain/weakness ?radiculopathy) Pedro Lomax MD [Primary Care Provider] - 1 Week (TSH low, follow up for free T4 result and appropriate treatment) Dixon Sellers MD [Staff Physician] - 1 Week (Follow up for low TSH) Disposition: HOME - Home Medications Comprehensive Discharge Medication List: Ambulatory Orders Apixaban [Eliquis] 5 mg PO BID 01/30/20 Aspirin [ASA -] 81 mg PO DAILY 01/30/20 Atorvastatin Ca [Lipitor] 40 mg PO HS 01/30/20 Diclofenac Sodium [Voltaren] 100 gm TP BID 01/30/20 Lisinopril [Prinivil] 5 mg PO DAILY 01/30/20 Metoprolol Tartrate 12.5 mg PO BID 01/30/20 Tamsulosin HCl [Flomax] 0.4 mg PO DAILY 01/30/20 Gabapentin [Neurontin -] 300 mg PO TID 30 Days #90 capsule 01/31/20 This patient is new to me today: No Emergency Visit: Yes ED Registration Date: 08/01/20 Care time: The patient presented to the Emergency Department on the above date and was hospitalized for further evaluation of their emergent condition. Critical Care patient: No - Discharge Referral Referred to [facility] No
[2020-01-31 15:40] VITALS: BP 107/69; PULSE 61; TEMP 97.9
--- NOTE | 2020-02-01 10:12 | EKG ---
Test Reason : Blood Pressure : / mmHG Vent. Rate : 062 BPM Atrial Rate : 062 BPM P-R Int : 168 ms QRS Dur : 094 ms QT Int : 394 ms P-R-T Axes : 063 030 030 degrees QTc Int : 399 ms NORMAL SINUS RHYTHM NORMAL ECG WHEN COMPARED WITH ECG OF 06-JAN-2020 23:45, NO SIGNIFICANT CHANGE WAS FOUND Confirmed by Agustin Larsen ([id number]) on 02/01/2020 10:12:23 AM Referred By: Confirmed By:Agustin Larsen
== END 2020-01-31 15:58 | disposition home or self-care (01) | DRG 347 ==
LOC: JER 02:52 → JERBED 06:42 → J5S 09:55
DX: M99.61 Osseous and subluxation stenosis of intervertebral foramina of cervical region (principal); M50.323 Other cervical disc degeneration at C6-C7 level; M47.892 Other spondylosis, cervical region; I25.10 Atherosclerotic heart disease of native coronary artery without angina pectoris; N40.0 Benign prostatic hyperplasia without lower urinary tract symptoms; E66.9 Obesity, unspecified; Z68.31 Body mass index [BMI] 31.0-31.9, adult; I10 Essential (primary) hypertension; Z86.19 Personal history of other infectious and parasitic diseases; D72.829 Elevated white blood cell count, unspecified; E78.5 Hyperlipidemia, unspecified; Z86.718 Personal history of other venous thrombosis and embolism; M47.22 Other spondylosis with radiculopathy, cervical region; M50.123 Cervical disc disorder at C6-C7 level with radiculopathy; M48.02 Spinal stenosis, cervical region
CPT/HCPCS: 36415; 70450-TC; 71045-TC-FY; 72125-TC; 72141-TC; 80048; 80053; 81003; 83735; 84100; 84439; 84443; 85025; 85027; 85651; 86140; 93005; 93010; 99285-25; J1100; U0003

== ENCOUNTER 2020-02-15 08:32 | Emergency (ER) | payer OTHER ==
[2020-02-15 08:45] VITALS: TEMP 97.9; BMI 31.1
[2020-02-15] MEDS ORDERED: ACETAMINOPHEN 1000 MG/100 ML VIAL (NON FORMULARY) IVPB ONE (09:06)
[2020-02-15] MEDS ORDERED: LIDOCAINE VISCOUS 2% ORAL/TOP 20 ML UNIT-DOSE CUP MM ONE (09:19)
[2020-02-15] MEDS ORDERED: MAG HYDROX/AL HYDROX/SIMETH 30 ML UNIT-DOSE CUP PO ONE (09:19)
[2020-02-15] MEDS ORDERED: FAMOTIDINE 20 MG/50 ML IVPB 20 MG/50 ML MG IVPB ONE ×2 (09:19→09:47)
--- NOTE | 2020-02-15 09:35 | PDOC ---
History of Present Illness - General Chief Complaint: Pain, Acute Stated Complaint: ABD PAIN Time Seen by Provider: 02/15/20 08:58 History Source: Patient Exam Limitations: No Limitations - History of Present Illness Initial Comments: Pt is a 50 yo M, with PMH of HTN, HLD, COVID+ (on eliquis), chronic neck/back pain (on oxycodone), who is presenting with periumbilical and RLQ abdominal pain. Pt states he gets this pain intermittently, and is usually when he is constipated. Pt states the pain is sharp, and is radiating to his RLQ. It was associated with 1 loose brown stool this AM. Pts last BM before that was 2-3 days ago, and is regularly constipated. Pt took pepto bismol with minimal relief, after eating oxtail last night. Pt has an appointment with GI to have a colonoscopy to evaluate this issue. Pt denies any fevers/chills, headache, vision changes, syncope, chest pain, palpitations, SOB, nausea/vomiting, testicular pain, penile discharge or lesions, urinary symptoms, or leg swelling. Allergies: NKDA PCP: Dr. Dami DELCID on vaccinations, normal history. Social: Pt denies any cigarette, alcohol, or drug use. Pt denies any recent travel or sick contacts. Surgical: appendectomy Family: no relevant history. 02/15/20 10:01 02/15/20 10:34 Past History - Travel History Traveled outside of the country in the last 30 days: No Close contact w/someone who was outside of country & ill: No - Medical History Allergies/Adverse Reactions: Allergies Allergy/AdvReac Type Severity Reaction Status Date / Time No Known Allergies Allergy Verified 02/15/20 08:43 Home Medications: Ambulatory Orders Apixaban [Eliquis] 5 mg PO BID 01/30/20 Aspirin [ASA -] 81 mg PO DAILY 01/30/20 Atorvastatin Ca [Lipitor] 40 mg PO HS 01/30/20 Diclofenac Sodium [Voltaren] 100 gm TP BID 01/30/20 Lisinopril [Prinivil] 5 mg PO DAILY 01/30/20 Metoprolol Tartrate 12.5 mg PO BID 01/30/20 Tamsulosin HCl [Flomax] 0.4 mg PO DAILY 01/30/20 Gabapentin [Neurontin -] 300 mg PO TID 30 Days #90 capsule 01/31/20 Ciprofloxacin HCl [Cipro] 500 mg PO BID #14 tablet 02/15/20 metroNIDAZOLE [Flagyl -] 500 mg PO TID #21 tablet 02/15/20 Cardiac Disorders: Yes COPD: No HTN: Yes Hypercholesterolemia: Yes Other medical history: "nerve pain" LUE/neck - Surgical History Appendectomy: Yes Cardiac Surgery: Yes - Immunization History Td Vaccination: Yes TDAP Vaccination: Yes Immunization Up to Date: Yes - Psycho-Social/Smoking History Smoking History: Unknown if ever smoked Have you smoked in the past 12 months: No - Substance Abuse Hx (Audit-C & DAST Scrn) How often the patient has a drink containing alcohol: Monthly or less How often the patient has six or more drinks on one occasion: Never Score: In Men: 4 or > Positive; In Women: 3 or > Positive: 1 Screen Result (Pos requires Nsg. Audit-10AR): Negative In the last yr the pt used illegal drug/Rx for NonMed reason: No Score: Yes response is considered Positive: 0 Screen Result (Positive result requires Nsg. DAST-10): Negative Abd/GI Specific PMHX - Complaint Specific PMHX Colitis: No Diverticulitis: No Gall Bladder Disease: No Pancreatitis: No GI Ulcer Disease: No Other History: appendectomy Review of Systems - Review of Systems Able to Perform ROS?: Yes Is the patient limited Urdu proficient: No Constitutional: Yes: Weight Stable. No: Chills, Diaphoresis, Fever, Loss of Appetite, Malaise, Weakness HEENTM: No: Recent change in vision, Nose Congestion, Throat Pain, Throat Swelling, Difficulty Swallowing Respiratory: No: Cough, Orthopnea, Shortness of Breath Cardiac (ROS): No: Chest Pain, Edema, Irregular Heart Rate, Lightheadedness, Palpitations, Syncope, Chest Tightness ABD/GI: Yes: See HPI, Constipated, Diarrhea. No: Abdominal Distended, Blood Streaked Bowels, Nausea, Poor Appetite, Poor Fluid Intake, Rectal Bleeding, Vomiting : No: Burning, Dysuria, Frequency, Flank Pain, Hematuria, Pain, Urgency Musculoskeletal: No: Back Pain, Muscle Pain Integumentary: No: Rash Neurological: No: Headache, Numbness, Weakness, Unsteady Gait, Dizziness Psychiatric: No: Sleep Pattern Change, Change in Appetite Endocrine: No: Increased Urine, Change in Weight Hematologic/Lymphatic: No: Anemia, Blood Clots, Easy Bleeding, Easy Bruising All Other Systems: Reviewed and Negative *Physical Exam - Vital Signs Last Vital Signs Temp Pulse Resp BP Pulse Ox 97.9 F 51 L 20 128/84 100 02/15/20 08:43 02/15/20 08:43 02/15/20 08:43 02/15/20 08:43 02/15/20 08:43 - Physical Exam Vitals stable, pt afebrile. Pt in NAD, obese body habitus. Pt alert and oriented x3. 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 No midline spinal tenderness, step-offs, or crepitus. Head normocephalic, atraumatic. Eyes PERRLA, EOMI. Oropharynx without erythema or exudates, no LAD b/l. No nasal congestion. Hearing intact. Clear heart sounds, S1/S2, no JVD, b/l pedal edema, or heart murmur. Clear lung sounds, no respiratory distress, wheezes, crackles, or accessory muscle use. RLQ and periumbilical abdominal TTP, with no rebound, no guarding. Well healed abdominal scar in RLQ. Abdomen soft, non-distended, and with normoactive bowel sounds. No CVA TTP. Skin without jaundice or rash. 02/15/20 10:33 02/15/20 10:35 ED Treatment Course - LABORATORY CBC & Chemistry Diagram: 02/15/20 09:25 02/15/20 09:25 Medical Decision Making - Medical Decision Making Pt was seen at bedside, also will be seen by attending Dr. Ivory. Pt presenting with abdominal pain, recently COVID+, prior appendectomy. Concerning for reflux vs gastroparesis (recent codeine use) vs diverticulitis. No testicular pain or tenderness on exam. Provided 1 L IV NS, 20 mg IV pepcid, 30 mg PO maalox, viscous lidocaine for improvement of indigestion, abdominal pain. Will continue to reassess pt and monitor for symptomatic improvement. 02/15/20 10:35 Elevated WBCs (has been elevated since use of steroids for neck pain) CMP generally WNL for pt 02/15/20 10:40 CT abd/pelvis showed ascending colitis. No abscess or fistulas noted. Pts abdominal pain improving after interventions. Pt safe for d/c to home with PCP f/u, strict return precautions provided with pt understanding. Providing cipro and flagyl for abx coverage. 02/15/20 14:45 Discharge - Discharge Information Problems reviewed: Yes Clinical Impression/Diagnosis: Colitis Condition: Improved Disposition: HOME - Admission No - Additional Discharge Information Prescriptions: Ciprofloxacin HCl [Cipro] 500 mg PO BID #14 tablet metroNIDAZOLE [Flagyl -] 500 mg PO TID #21 tablet - Follow up/Referral Referrals: Pedro Lomax MD [Primary Care Provider] - - Patient Discharge Instructions Patient Printed Discharge Instructions: DI for Colitis Additional Instructions: You were seen in the ER for abdominal pain. We did an exam, labs, and a CT scan which showed an infection of the colon for which you need antibiotics. 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 Do not drink any alcohol at all for the next couple of weeks while you are on these antibiotics. Please follow up with your regular PCP in 1-3 days. Call their clinic, tell them you were seen in the ER, and tell them you need a follow-up. If you have any new or worsening symptoms, especially severe abdominal pain, bloody diarrhea, or inability to tolerate food and drink, please come back to the ER at any time (24 hours a day). If you are having severe or life threatening symptoms, or symptoms that make it unsafe to drive or have someone drive you, please call 911. - Post Discharge Activity
[2020-02-15] MEDS ORDERED: MAG HYDROX/AL HYDROX/SIMETH 30 ML UNIT-DOSE CUP ONE (09:46)
[2020-02-15] MEDS ORDERED: ACETAMINOPHEN INJECTION 100 ML IVPB ONE (09:46)
[2020-02-15] MEDS ORDERED: LIDOCAINE VISCOUS 2% ORAL/TOP 20 ML UNIT-DOSE CUP ONE (09:46)
[2020-02-15 09:53] LABS: BASO % 0.4 % (0-2.0); EOS % 0.1 % (0-4.5); HEMATOCRIT 43.8 % (35.4-49); HEMOGLOBIN 14.3 GM/dL (11.7-16.9); MCH 27.5 pg (25.7-33.7); MCHC 32.7 g/dl (32.0-35.9); MEAN CELL VOLUME 84.2 fl (80-96); MEAN PLT VOLUME 8.6 fl (7.5-11.1); MONO % 11.7 % (3.8-10.2); NEUT % 77.8 % (42.8-82.8); PLATELET COUNT 259 K/MM3 (134-434); RDW 14.6 % (11.9-15.9); WHITE BLOOD COUNT 17.9 K/mm3 (4.0-10.0)
[2020-02-15 10:13] LABS: INR 1.52 (0.83-1.09)
[2020-02-15 10:16] LABS: ACTIVATED PTT 23.4 SECONDS (25.2-36.5)
[2020-02-15 10:27] LABS: ALBUMIN 3.4 g/dl (3.4-5.0); BILIRUBIN,TOTAL 0.3 mg/dL (0.2-1); BLOOD UREA NITROGEN 17.1 mg/dL (7-18); CALCIUM 8.4 mg/dL (8.5-10.1); CREATININE 0.9 mg/dL (0.55-1.3); TOT PROT 6.7 g/dl (6.4-8.2)
--- NOTE | 2020-02-15 10:47 | PDOC ---
Documentation entered by Marianela Chou SCRIBE, acting as scribe for Phoebe Ivory MD. Phoebe Ivory MD: This documentation has been prepared by the theodoreibeJosé Antonio Ana, SCRIBE, under my direction and personally reviewed by me in its entirety. I confirm that the documentation accurately reflects all work, treatment, procedures, and medical decision making performed by me. Attending Attestation - Resident Resident Name: BlancaBrianna - ED Attending Attestation I have performed the following: I have examined & evaluated the patient, The case was reviewed & discussed with the resident, I agree w/resident's findings & plan, Exceptions are as noted - HPI HPI: 02/15/20 09:14 Patient is a 50 year old male with a significant past medical history of appendectomy, hypertension, HLD, COVID, h/o leg DVT, and CAD sp coronary cath (Mar 2019), who presents to the ED with right lower quadrant pain and diarrhea. Patient stated the pain was initially periumbilical, has radiated to the right lower quadrant. and described it as a "squeezing" sensation. Patient reports he has been experiencing NBNB diarrhea and constipation. Patient also disclosed that he has been taking opiate medication for his chronic shoulder pain. Patient has had similar abdominal pain in the past. Patient denies: any other related symptoms. Allergies: NKDA - Physicial Exam PE: 02/15/20 09:49 GENERAL: +Egyptian speaking daughter at bedside. nontoxic-appearing, A/Ox4, no distress, answers questions appropriately HEENT: PERRLA, EOMI, moist mucous membranes NECK/BACK: no midline ttp, no spinal stepoff or deformity, no hematoma, full ROM, neck supple CARDIOVASCULAR: regular rate/rhythm, no MGR, strong peripheral pulses, capillary refill <2 seconds, extremities wwp, no edema LUNGS/RESPIRATORY: no respiratory distress, CTAB GI/ABDOMEN: +RLQ pain tenderness to palpation. symmetric [id number], normoactive BS, soft, no midline pulsatile masses : no CVA tenderness MSK/EXTREMITIES: no muscle atrophy, no acute deformity SKIN: warm and dry, no pallor, no jaundice, no rash, no pathologic-appearing bruising, no skin breakdown, no cuts, no lesions NEUROLOGICAL: GCS 15, CN II-XII grossly intact, 5/5 strength proximally and distally, no facial droop - Medical Decision Making 02/15/20 10:44 Adult male Pt with prior appendectomy p/w RLQ abdominal pain. Initial Vital Signs Temp Pulse Resp BP Pulse Ox 97.9 F 51 L 20 128/84 100 02/15/20 08:43 02/15/20 08:43 02/15/20 08:43 02/15/20 08:43 02/15/20 08:43 DDX IBNLT: most likely constipation e.g. slow transit from opiate pain reliever use. Less likely renal colic, hernia, testicular or scrotal pathology, abscess (scrotal, soft tissue, perirectal, folliculitis, etc), diverticulitis wwo abscess or perforation, colitis, SBO, bowel ischemia, musculoskeletal, malignancy, etc. Provider Orders Category Date Time Status TYPE AND SCREEN Stat Blood Bank 02/15/20 09:25 Received ABDOMEN & PELVIS CT WITH CONTR [CT] Stat CT Scan 02/15/20 10:19 Ordered CBC WITH DIFFERENTIAL Stat Lab 02/15/20 09:25 Completed CMP [COMP METABOLIC PANEL] Stat Lab 02/15/20 09:25 Completed LACTIC ACID Stat Lab 02/15/20 09:25 Completed LIPASE Stat Lab 02/15/20 09:25 Completed PT [PT/INR (PROTHROMBIN TIME)] Stat Lab 02/15/20 09:25 Completed PTT [ACTIVATED PTT] Stat Lab 02/15/20 09:25 Completed UA ([facility]) ONLY Stat Lab 02/15/20 09:24 Ordered Acetaminophen Injection [Ofirmev Injection -] Medication 02/15/20 09:06 Discontinued 1,000 mg IVPB ONCE ONE Acetaminophen Injection [Ofirmev Injection -] 100 ml Medication 02/15/20 09:46 Discontinued IVPB UD Famotidine 20 mg/50 ml Ivpb [Pepcid 20 mg Premixed Ivpb Medication 02/15/20 09:19 Discontinued -] 20 mg in 50 ml IVPB ONCE Famotidine 20 mg/50 ml Ivpb [Pepcid 20 mg Premixed Ivpb Medication 02/15/20 09:47 Discontinued -] 20 mg in 50 ml IVPB UD Lidocaine 2% Viscous Oral [Xylocaine 2% Viscous Oral -] Medication 02/15/20 09:46 Discontinued 20 ml .ROUTE .STK-MED ONE Lidocaine 2% Viscous Oral [Xylocaine 2% Viscous Oral -] Medication 02/15/20 09:19 Discontinued 20 ml MM ONCE ONE Mag Hydrox/Al Hydrox/Simeth [Mylanta Oral Suspension -] Medication 02/15/20 09:46 Discontinued 30 ml .ROUTE .STK-MED ONE Mag Hydrox/Al Hydrox/Simeth [Mylanta Oral Suspension -] Medication 02/15/20 09:19 Discontinued 30 ml PO ONCE ONE Urine Culture [URINE CULTURE] Stat Micro 02/15/20 09:24 Ordered IV Insert NOW Phy Order 02/15/20 09:05 Completed Medications Discontinued Medications Generic Name Dose Route Start Last Admin Trade Name Billy PRN Reason Stop Dose Admin Acetaminophen 1,000 mg 02/15/20 09:06 02/15/20 09:52 Ofirmev Injection - IVPB 02/15/20 09:07 1,000 mg ONCE ONE Administration Al Hydroxide/Mg Hydroxide 30 ml 02/15/20 09:19 02/15/20 09:52 Mylanta Oral Suspension - PO 02/15/20 09:20 30 ml ONCE ONE Administration Al Hydroxide/Mg Hydroxide Confirm 02/15/20 09:46 Mylanta Oral Suspension - Administered 02/15/20 09:47 Dose 30 ml .ROUTE .STK-MED ONE Famotidine/Sodium Chloride 20 mg in 50 mls @ 100 mls/hr 02/15/20 09:19 02/15/20 09:52 Pepcid 20 Mg Premixed Ivpb - IVPB 02/15/20 09:48 100 mls/hr ONCE ONE Administration Acetaminophen Confirm 02/15/20 09:46 Ofirmev Injection - Administered 02/15/20 09:47 Dose 100 mls @ ud IVPB .STK-MED ONE Famotidine/Sodium Chloride Confirm 02/15/20 09:47 Pepcid 20 Mg Premixed Ivpb - Administered 02/15/20 09:48 Dose 20 mg in 50 mls @ ud IVPB .STK-MED ONE Lidocaine HCl 20 ml 02/15/20 09:19 02/15/20 09:52 Xylocaine 2% Viscous Oral - MM 02/15/20 09:20 20 ml ONCE ONE Administration Lidocaine HCl Confirm 02/15/20 09:46 Xylocaine 2% Viscous Oral - Administered 02/15/20 09:47 Dose 20 ml .ROUTE .STK-MED ONE Lab Results WBC 17.9 K/mm3 (4.0-10.0) H 02/15/20 09:25 RBC 5.20 M/mm3 (4.00-5.60) 02/15/20 09:25 Hgb 14.3 GM/dL (11.7-16.9) 02/15/20 09:25 Hct 43.8 % (35.4-49) 02/15/20 09:25 MCV 84.2 fl (80-96) 02/15/20 09:25 MCH 27.5 pg (25.7-33.7) 02/15/20 09:25 MCHC 32.7 g/dl (32.0-35.9) 02/15/20 09:25 RDW 14.6 % (11.9-15.9) 02/15/20 09:25 Plt Count 259 K/MM3 (134-434) 02/15/20 09:25 MPV 8.6 fl (7.5-11.1) 02/15/20 09:25 Absolute Neuts (auto) 13.9 K/mm3 (1.5-8.0) H 02/15/20 09:25 Neutrophils % 77.8 % (42.8-82.8) D 02/15/20 09:25 Lymphocytes % 10.0 % (8-40) D 02/15/20 09:25 Monocytes % 11.7 % (3.8-10.2) H 02/15/20 09:25 Eosinophils % 0.1 % (0-4.5) D 02/15/20 09:25 Basophils % 0.4 % (0-2.0) 02/15/20 09:25 Nucleated RBC % 0 % (0-0) 02/15/20 09:25 PT with INR 18.00 SEC (9.7-13.0) H 02/15/20 09:25 INR 1.52 (0.83-1.09) H 02/15/20 09:25 PTT (Actin FS) 23.4 SECONDS (25.2-36.5) L 02/15/20 09:25 Sodium 141 mmol/L (136-145) 02/15/20 09:25 Potassium 4.0 mmol/L (3.5-5.1) 02/15/20 09:25 Chloride 107 mmol/L (98-107) 02/15/20 09:25 Carbon Dioxide 25 mmol/L (21-32) 02/15/20 09:25 Anion Gap 8 MMOL/L (8-16) 02/15/20 09:25 BUN 17.1 mg/dL (7-18) 02/15/20 09:25 Creatinine 0.9 mg/dL (0.55-1.3) 02/15/20 09:25 Est GFR (CKD-EPI)AfAm 114.21 02/15/20 09:25 Est GFR (CKD-EPI)NonAf 98.54 02/15/20 09:25 Random Glucose 102 mg/dL (74-106) 02/15/20 09:25 Lactic Acid 1.9 mmol/L (0.4-2.0) 02/15/20 09:25 Calcium 8.4 mg/dL (8.5-10.1) L 02/15/20 09:25 Total Bilirubin 0.3 mg/dL (0.2-1) 02/15/20 09:25 AST 22 U/L (15-37) 02/15/20 09:25 ALT 62 U/L (13-61) H 02/15/20 09:25 Alkaline Phosphatase 64 U/L (45-117) 02/15/20 09:25 Total Protein 6.7 g/dl (6.4-8.2) 02/15/20 09:25 Albumin 3.4 g/dl (3.4-5.0) 02/15/20 09:25 Lipase 153 U/L (73-393) 02/15/20 09:25 CT/ABDOMEN PELVIS CT WITH CONTR INDICATION: Post appendectomy with right lower quadrant pain, evaluate for acute diverticulitis. TECHNIQUE: Helical images of the abdomen and pelvis obtained with 90 mL Omnipaque 350 IV . COMPARISON IMAGIN02/03/2018 FINDINGS: LUNG BASES:Negative. LIVER: Negative. GALLBLADDER: Negative. BILIARY DUCTS: Negative. PANCREAS: Negative. SPLEEN: Negative. ADRENALS: Negative. KIDNEYS: Tiny cysts present bilaterally which could be further assessed with ultrasound imaging. No hydronephrosis or nephrolithiasis appreciated. AORTA: Negative. LYMPH NODES: Shotty groin adenopathy is seen. BOWEL: The appendix was not visualized. History of prior appendectomy. Mild thickening of the ascending colon is noted which could be secondary to underdistention or underlying colitis. No mesenteric stranding is identified. No pneumatosis is seen. There is some haziness of the root of the mesentery with small adenopathy suggesting panniculitis. These findings were present on prior CT. Fat-containing paraumbilical hernia with no stranding. PELVIS: The prostate is enlarged measuring 4.5 cm in AP diameter dimension. Seminal vesicles are symmetric. The bladder is physiologically distended. No pelvic sidewall adenopathy is seen. Fat- containing internal hernia is present bilaterally with no stranding. A lipoma is identified central to the gluteus muscles on the right seen previously. OTHER: No aggressive bone lesions are noted. Discogenic disease noted at the level of L4/5 with mild disc herniation. No aggressive bone lesions seen. IMPRESSION: Mild thickening of the wall of the ascending colon could be secondary to underdistention or underlying early colitis. Correlate clinically. Enlarged prostate gland. Additional comments noted above. In this clinical picture the CT results suggest colitis. Patient given doses of abx here in the ED and E-Rx sent to his pharmacy for remaining courses. On last exam the patient's VS are reassuring, exam is benign, patient believes pain will be manageable at home. Return precautions discussed, dispo per resident note. Last Vital Signs Temp Pulse Resp BP Pulse Ox 97.9 F 79 18 127/74 99 02/15/20 08:43 02/15/20 13:54 02/15/20 13:54 02/15/20 13:54 02/15/20 13:54 Discharge - Discharge Information Problems reviewed: Yes Clinical Impression/Diagnosis: Colitis Condition: Improved Disposition: HOME - Admission No - Additional Discharge Information Prescriptions: Ciprofloxacin HCl [Cipro] 500 mg PO BID #14 tablet metroNIDAZOLE [Flagyl -] 500 mg PO TID #21 tablet - Follow up/Referral Referrals: Pedro Lomax MD [Primary Care Provider] - - Patient Discharge Instructions Patient Printed Discharge Instructions: DI for Colitis Additional Instructions: You were seen in the ER for abdominal pain. We did an exam, labs, and a CT scan which showed an infection of the colon for which you need antibiotics. 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 Do not drink any alcohol at all for the next couple of weeks while you are on these antibiotics. Please follow up with your regular PCP in 1-3 days. Call their clinic, tell them you were seen in the ER, and tell them you need a follow-up. If you have any new or worsening symptoms, especially severe abdominal pain, bloody diarrhea, or inability to tolerate food and drink, please come back to the ER at any time (24 hours a day). If you are having severe or life threatening symptoms, or symptoms that make it unsafe to drive or have someone drive you, please call 911. - Post Discharge Activity
[2020-02-15] MEDS ORDERED: metroNIDAZOLE 250 MG TABLET PO ONE (13:19)
[2020-02-15] MEDS ORDERED: CIPROFLOXACIN 500 MG TABLET (RESTRICTED TO ID) PO ONE (13:19)
[2020-02-15] MEDS ORDERED: metroNIDAZOLE 250 MG TABLET ONE (13:53)
[2020-02-15 13:55] VITALS: BP 127/74; PULSE 79
== END 2020-02-15 14:00 | disposition home or self-care (01) ==
LOC: JER 08:32
PROC: 3E0333Z Introduction of Anti-inflammatory into Peripheral Vein, Percutaneous Approach (ICD-10-PCS; principal; 2020-02-15)
PROC: 3E033GC Introduction of Other Therapeutic Substance into Peripheral Vein, Percutaneous Approach (ICD-10-PCS; 2020-02-15)
DX: K52.9 Noninfective gastroenteritis and colitis, unspecified (principal)
CPT/HCPCS: 36415; 74177-TC; 80053; 83605; 83690; 85025; 85610; 85730; 86850; 86900; 86901; 99285-25; J0131; Q9967

== ENCOUNTER 2021-12-17 15:48 | Emergency (ER) | payer OTHER ==
[2021-12-17 15:54] VITALS: BP 142/88; PULSE 65; TEMP 98.2; BMI 25.0
[2021-12-17] MEDS ORDERED: KETOROLAC TROMETHAMINE 30 MG/1 ML VIAL IVPUSH ONE (16:33)
[2021-12-17] MEDS ORDERED: SODIUM CHLORIDE 0.9% 500 ML INFUS.BAG IV ONE (16:33)
[2021-12-17] MEDS ORDERED: KETOROLAC TROMETHAMINE 30 MG/1 ML VIAL ONE (16:45)
[2021-12-17 17:04] LABS: BASO % 0.3 % (0-2.0); EOS % 2.4 % (0-4.5); HEMATOCRIT 42.9 % (35.4-49); HEMOGLOBIN 14.2 GM/dL (11.7-16.9); LYMPH % 34.2 % (8-40); MCH 26.9 pg (25.7-33.7); MEAN CELL VOLUME 81.8 fl (80-96); MEAN PLT VOLUME 8.4 fl (7.5-11.1); MONO % 8.6 % (3.8-10.2); NEUT % 54.5 % (42.8-82.8); PLATELET COUNT 302 10^3/uL (134-434); RBC 5.25 M/mm3 (4.00-5.60); RDW 14.5 % (11.9-15.9); WHITE BLOOD COUNT 8.7 K/mm3 (4.0-10.0)
[2021-12-17 17:06] LABS: PH,URINE 5.5 (5.0-8.0); URINE APPEARANCE CLEAR; URINE BILIRUBIN NEGATIVE (NEGATIVE); URINE COLOR YELLOW; URINE GLUCOSE (UA) NEGATIVE (NEGATIVE); URINE KETONE NEGATIVE (NEGATIVE); URINE LEUK ESTERASE NEGATIVE (NEGATIVE); URINE NITRITE NEGATIVE (NEGATIVE); URINE PROTEIN NEGATIVE (NEGATIVE); URINE UROBILINOGEN 0.2 mg/dL (0.2-1.0)
[2021-12-17 17:22] LABS: CALCIUM 9.1 mg/dL (8.5-10.1)
[2021-12-17 17:23] LABS: ALBUMIN 3.9 g/dl (3.4-5.0); BLOOD UREA NITROGEN 15.3 mg/dL (7-18)
[2021-12-17 17:26] LABS: CREATININE 0.9 mg/dL (0.55-1.3)
[2021-12-17 17:27] LABS: BILIRUBIN,TOTAL 0.2 mg/dL (0.2-1); TOT PROT 7.4 g/dl (6.4-8.2)
== END 2021-12-17 19:13 | disposition home or self-care (01) ==
LOC: JERFT 15:48
PROC: 3E0333Z Introduction of Anti-inflammatory into Peripheral Vein, Percutaneous Approach (ICD-10-PCS; principal; 2021-12-17)
DX: N20.0 Calculus of kidney (principal)
CPT/HCPCS: 36415; 74176-TC; 80053; 81003; 85025; 87086; 99285-25

== ENCOUNTER 2021-12-20 00:15 | Emergency (ER) | payer OTHER ==
[2021-12-20 00:25] VITALS: BP 149/84; PULSE 59; TEMP 98.8; BMI 29.9
[2021-12-20] MEDS ORDERED: KETOROLAC TROMETHAMINE 30 MG/1 ML VIAL IM ONE (01:14)
[2021-12-20] MEDS ORDERED: KETOROLAC TROMETHAMINE 30 MG/1 ML VIAL ONE (01:18)
[2021-12-20 01:32] LABS: PH,URINE 5.5 (5.0-8.0); URINE APPEARANCE CLEAR; URINE BILIRUBIN NEGATIVE (NEGATIVE); URINE COLOR YELLOW; URINE GLUCOSE (UA) NEGATIVE (NEGATIVE); URINE KETONE NEGATIVE (NEGATIVE); URINE LEUK ESTERASE NEGATIVE (NEGATIVE); URINE NITRITE NEGATIVE (NEGATIVE); URINE PROTEIN NEGATIVE (NEGATIVE); URINE UROBILINOGEN 0.2 mg/dL (0.2-1.0)
[2021-12-20 02:57] LABS: BASO % 1.3 % (0-2.0); EOS % 2.5 % (0-4.5); HEMATOCRIT 40.6 % (35.4-49); HEMOGLOBIN 13.4 GM/dL (11.7-16.9); LYMPH % 31.8 % (8-40); MCHC 33.1 g/dl (32.0-35.9); MEAN CELL VOLUME 81.7 fl (80-96); MEAN PLT VOLUME 7.9 fl (7.5-11.1); NEUT % 53.4 % (42.8-82.8); PLATELET COUNT 255 10^3/uL (134-434); RBC 4.96 M/mm3 (4.00-5.60); RDW 14.4 % (11.9-15.9); WHITE BLOOD COUNT 8.8 K/mm3 (4.0-10.0)
[2021-12-20 03:16] LABS: ALBUMIN 3.3 g/dl (3.4-5.0); CALCIUM 8.6 mg/dL (8.5-10.1)
[2021-12-20 03:19] LABS: CREATININE 0.9 mg/dL (0.55-1.3)
[2021-12-20 03:21] LABS: BILIRUBIN,TOTAL 0.1 mg/dL (0.2-1); TOT PROT 6.6 g/dl (6.4-8.2)
== END 2021-12-20 05:39 | disposition home or self-care (01) ==
LOC: JER 00:15
PROC: 3E023GC Introduction of Other Therapeutic Substance into Muscle, Percutaneous Approach (ICD-10-PCS; principal; 2021-12-20)
DX: M54.50 Low back pain, unspecified (principal)
CPT/HCPCS: 36415; 71046-TC-FY; 80053; 81003; 84484; 85025; 85379; 87086; 93005; 93010; 99285-25

== ENCOUNTER 2022-02-02 00:17 | Inpatient (IN) | payer OTHER ==
[2022-02-02] MEDS ORDERED: SODIUM CHLORIDE 0.9% 500 ML INFUS.BAG IV ONE ×2 (00:52→03:49)
[2022-02-02] MEDS ORDERED: KETOROLAC TROMETHAMINE 30 MG/1 ML VIAL IVPUSH ONE (00:52)
[2022-02-02 01:20] LABS: EPI CELLS 6 /uL (0-25.1); HYALINE CASTS 1 /uL (0-3.1); URINE APPEARANCE TURBID; URINE BACTERIA 0 /uL (0-1359); URINE BILIRUBIN NEGATIVE (NEGATIVE); URINE COLOR RED; URINE GLUCOSE (UA) NEGATIVE (NEGATIVE); URINE KETONE TRACE (NEGATIVE); URINE LEUK ESTERASE 1+ (NEGATIVE); URINE NITRITE NEGATIVE (NEGATIVE); URINE PROTEIN 2+ (NEGATIVE); URINE RBC 27900 /uL (0-23.9); URINE WBC 60 /uL (0-25.8)
[2022-02-02] MEDS ORDERED: KETOROLAC TROMETHAMINE 30 MG/1 ML VIAL ONE (02:13)
[2022-02-02 02:20] LABS: BASO % 1.1 % (0-2.0); EOS % 1.2 % (0-4.5); HEMATOCRIT 40.2 % (35.4-49); HEMOGLOBIN 13.2 GM/dL (11.7-16.9); MCH 26.7 pg (25.7-33.7); MCHC 32.9 g/dl (32.0-35.9); MEAN PLT VOLUME 8.3 fl (7.5-11.1); MONO % 7.2 % (3.8-10.2); NEUT % 72.5 % (42.8-82.8); PLATELET COUNT 264 10^3/uL (134-434); RBC 4.97 M/mm3 (4.00-5.60); RDW 14.3 % (11.9-15.9); WHITE BLOOD COUNT 9.1 K/mm3 (4.0-10.0)
[2022-02-02 02:45] LABS: ALBUMIN 3.4 g/dl (3.4-5.0); BLOOD UREA NITROGEN 16.4 mg/dL (7-18); CALCIUM 8.3 mg/dL (8.5-10.1)
[2022-02-02 02:48] LABS: CREATININE 1.4 mg/dL (0.55-1.3)
[2022-02-02 02:50] LABS: BILIRUBIN,TOTAL 0.2 mg/dL (0.2-1); TOT PROT 6.9 g/dl (6.4-8.2)
[2022-02-02] MEDS ORDERED: morphine SULFATE 4 MG/ML VIAL IVPUSH ONE (03:57)
[2022-02-02] MEDS ORDERED: morphine CARPU-JECT 4 MG/1 ML DISP.SYRIN IVPUSH PRN (06:55)
[2022-02-02] MEDS ORDERED: SODIUM CHLORIDE 1,000 ML IV SCH ×2 (07:00→20:35)
[2022-02-02] MEDS ORDERED: ONDANSETRON 4 MG/2 ML VIAL IVPUSH PRN ×4 (07:03→20:35)
[2022-02-02] MEDS ORDERED: ACETAMINOPHEN INJECTION 100 ML IVPB ONE ×2 (08:30→15:03)
[2022-02-02] MEDS ORDERED: TAMSULOSIN HCL 0.4 MG CAP PO SCH (08:30)
[2022-02-02] MEDS: ACETAMINOPHEN 1000 MG/100 ML BAG IVPB PRN ×2 (08:35→15:18)
[2022-02-02] MEDS ORDERED: morphine SULFATE 4 MG/ML VIAL IVPUSH PRN ×2 (09:20→20:35)
[2022-02-02] MEDS ORDERED: TAMSULOSIN HCL 0.4 MG CAP ONE (09:37)
[2022-02-02] MEDS ORDERED: morphine SULFATE 4 MG/ML VIAL ONE (09:37)
[2022-02-02] MEDS ORDERED: METOPROLOL TARTRATE 25 MG TABLET (FP) ONE (09:37)
[2022-02-02] MEDS ORDERED: ONDANSETRON 4 MG/2 ML VIAL ONE (09:37)
[2022-02-02] MEDS ORDERED: ASPIRIN 81 MG CHEWABLE TABLETS ONE (09:37)
[2022-02-02] MEDS ORDERED: APIXABAN 5 MG TABLET ONE (09:37)
[2022-02-02] MEDS ORDERED: APIXABAN 5 MG TABLET PO SCH (10:00)
[2022-02-02] MEDS ORDERED: METOPROLOL TARTRATE 25 MG TABLET (FP) PO SCH (10:00)
[2022-02-02] MEDS ORDERED: ASPIRIN 81 MG CHEWABLE TABLETS PO SCH (10:00)
[2022-02-02] MEDS ORDERED: LISINOPRIL 5 MG TABLET PO SCH (10:00)
[2022-02-02] MEDS ORDERED: PATIENT'S OWN MEDICATION (NON-FORMULARY) (Diclofenac Sodium [Voltaren] 100 GM Gel..Gram.) TP SCH (10:00)
[2022-02-02 11:18] LABS: HEMATOCRIT 38.1 % (35.4-49); HEMOGLOBIN 12.7 GM/dL (11.7-16.9); MCH 26.8 pg (25.7-33.7); MCHC 33.3 g/dl (32.0-35.9); MEAN CELL VOLUME 80.6 fl (80-96); MEAN PLT VOLUME 7.6 fl (7.5-11.1); PLATELET COUNT 241 10^3/uL (134-434); RBC 4.73 M/mm3 (4.00-5.60); RDW 14.8 % (11.9-15.9); WHITE BLOOD COUNT 10.1 K/mm3 (4.0-10.0)
[2022-02-02 11:43] LABS: ALBUMIN 3.1 g/dl (3.4-5.0); BLOOD UREA NITROGEN 16.1 mg/dL (7-18); CALCIUM 8.2 mg/dL (8.5-10.1); MAGNESIUM 2.1 mg/dL (1.8-2.4)
[2022-02-02 11:46] LABS: CREATININE 1.1 mg/dL (0.55-1.3); PHOSPHOROUS 2.4 mg/dL (2.5-4.9)
[2022-02-02 11:47] LABS: BILIRUBIN,TOTAL 0.5 mg/dL (0.2-1)
[2022-02-02 11:48] LABS: TOT PROT 6.4 g/dl (6.4-8.2)
[2022-02-02] MEDS ORDERED: CEFTRIAXONE 1 GM in DEXTROSE 5%-WATER - 50 ML IVPB SCH (14:15)
[2022-02-02] MEDS ORDERED: CEFTRIAXONE 1 GM/50 ML BAG ONE (14:55)
[2022-02-02] MEDS ORDERED: ETOMIDATE 20 MG/10 ML AMPUL IVPUSH ONE (19:05)
[2022-02-02] MEDS ORDERED: MIDAZOLAM HCL 2 MG/2 ML SINGLE DOSE VIAL ONE (19:05)
[2022-02-02] MEDS ORDERED: PHENYLEPHRINE HCL 10 MG/1 ML SINGLE DOSE VIAL ONE (19:08)
[2022-02-02] MEDS ORDERED: LACTATED RINGERS SOLUTION 1,000 ML IV SCH (20:30)
[2022-02-02] MEDS ORDERED: ACETAMINOPHEN 1000 MG/100 ML BAG IVPB PRN (20:35)
[2022-02-02] MEDS ORDERED: ATORVASTATIN CA 40 MG TABLET (FP) PO SCH ×2 (22:00)
[2022-02-02] MEDS: METOPROLOL TARTRATE 25 MG TABLET (FP) PO SCH (22:52)
[2022-02-02] MEDS: APIXABAN 5 MG TABLET PO SCH (22:53)
[2022-02-03 00:39] VITALS: RESP 18
[2022-02-03] MEDS ORDERED: TAMSULOSIN HCL 0.4 MG CAP PO SCH (08:30)
[2022-02-03 09:32] VITALS: BP 142/69; PULSE 77; TEMP 98
[2022-02-03] MEDS ORDERED: ASPIRIN 81 MG CHEWABLE TABLETS PO SCH (10:00)
[2022-02-03] MEDS: METOPROLOL TARTRATE 25 MG TABLET (FP) PO SCH (11:32)
[2022-02-03] MEDS: APIXABAN 5 MG TABLET PO SCH (11:32)
== END 2022-02-03 16:31 | disposition home or self-care (01) | DRG 443 ==
LOC: JER 00:17 → JERBED 04:00 → J8W 21:24
PROVIDERS: ADMIT Hospitalist; ATTEND Nurse Practitioner Family
PROC: BT1DYZZ Fluoroscopy of Right Kidney, Ureter and Bladder using Other Contrast (ICD-10-PCS; 2022-02-02)
PROC: 0T768ZZ Dilation of Right Ureter, Via Natural or Artificial Opening Endoscopic (ICD-10-PCS; principal; 2022-02-02 18:30)
DX: N13.2 Hydronephrosis with renal and ureteral calculous obstruction (principal); I25.10 Atherosclerotic heart disease of native coronary artery without angina pectoris; Z86.718 Personal history of other venous thrombosis and embolism; Z79.01 Long term (current) use of anticoagulants; I10 Essential (primary) hypertension; N17.9 Acute kidney failure, unspecified; E78.5 Hyperlipidemia, unspecified
CPT/HCPCS: 36415; 74176-TC; 76000-TC-FY; 80053; 81003; 83735; 84100; 85025; 85027; 87086; 93005; 93010; 94760; 99285-25; C9803-CS; U0003; U0005

== ENCOUNTER 2023-04-23 21:56 | Inpatient (IN) | payer OTHER ==
[2023-04-23] MEDS ORDERED: ACETAMINOPHEN 1000 MG/100 ML BAG IVPB ONE (23:28)
[2023-04-23] MEDS ORDERED: ACETAMINOPHEN INJECTION 100 ML IVPB ONE (23:34)
[2023-04-23 23:43] LABS: POTASSIUM 4.1 mmol/L (3.5-5.1)
[2023-04-23 23:44] LABS: BASO % 1.1 % (0-2.0); EOS % 1.4 % (0-4.5); HEMATOCRIT 42.1 % (35.4-49); HEMOGLOBIN 13.7 GM/dL (11.7-16.9); LYMPH % 24.4 % (8-40); MCH 26.4 pg (25.7-33.7); MCHC 32.5 g/dl (32.0-35.9); MEAN CELL VOLUME 81.2 fl (80-96); MEAN PLT VOLUME 8.7 fl (7.5-11.1); MONO % 13.2 % (3.8-10.2); NEUT % 59.9 % (42.8-82.8); PLATELET COUNT 302 10^3/uL (134-434); RBC 5.19 M/mm3 (4.00-5.60); RDW 14.2 % (11.9-15.9); WHITE BLOOD COUNT 11.7 K/mm3 (4.0-10.0)
[2023-04-23 23:45] LABS: CALCIUM 8.6 mg/dL (8.5-10.1)
[2023-04-23 23:46] LABS: ALBUMIN 3.4 g/dl (3.4-5.0); BLOOD UREA NITROGEN 11.1 mg/dL (7-18)
[2023-04-23 23:49] LABS: CREATININE 0.9 mg/dL (0.55-1.3)
[2023-04-23 23:50] LABS: BILIRUBIN,TOTAL 0.3 mg/dL (0.2-1)
[2023-04-23 23:54] LABS: INR 1.3 (0.83-1.09)
[2023-04-23 23:56] LABS: ACTIVATED PTT 33.2 SECONDS (25.2-36.5)
[2023-04-24] MEDS ORDERED: AZITHROMYCIN IVPB 500 MG in DEXTROSE 5%-WATER - 250 ML IVPB ONE (05:09)
[2023-04-24] MEDS ORDERED: CEFTRIAXONE 1 GM in DEXTROSE 5%-WATER - 100 ML IVPB ONE (05:09)
[2023-04-24] MEDS ORDERED: AZITHROMYCIN IVPB 500 MG/250 ML BAG IVPB ONE (05:17)
[2023-04-24] MEDS ORDERED: CEFTRIAXONE 1 GM/50 ML BAG ONE (05:17)
[2023-04-24] MEDS ORDERED: ACETAMINOPHEN 325 MG TABLET (FP) PO PRN ×2 (05:56→22:29)
[2023-04-24 06:33] LABS: EOS % 1.3 % (0-4.5); HEMATOCRIT 40.7 % (35.4-49); HEMOGLOBIN 13.1 GM/dL (11.7-16.9); LYMPH % 25.5 % (8-40); MCH 26.4 pg (25.7-33.7); MCHC 32.1 g/dl (32.0-35.9); MEAN CELL VOLUME 82.4 fl (80-96); MEAN PLT VOLUME 8.2 fl (7.5-11.1); MONO % 12.6 % (3.8-10.2); NEUT % 59.6 % (42.8-82.8); PLATELET COUNT 289 10^3/uL (134-434); RBC 4.94 M/mm3 (4.00-5.60); RDW 14.7 % (11.9-15.9); WHITE BLOOD COUNT 10.1 K/mm3 (4.0-10.0)
[2023-04-24 06:52] LABS: POTASSIUM 4.3 mmol/L (3.5-5.1)
[2023-04-24 06:57] LABS: CALCIUM 8.3 mg/dL (8.5-10.1)
[2023-04-24 06:58] LABS: ALBUMIN 3.2 g/dl (3.4-5.0); BLOOD UREA NITROGEN 9.3 mg/dL (7-18)
[2023-04-24 07:01] LABS: CREATININE 0.8 mg/dL (0.55-1.3)
[2023-04-24 07:02] LABS: BILIRUBIN,TOTAL 0.4 mg/dL (0.2-1); TOT PROT 6.6 g/dl (6.4-8.2)
[2023-04-24] MEDS ORDERED: ACETAMINOPHEN 325 MG TABLET (FP) ONE (07:48)
[2023-04-24] MEDS ORDERED: METOPROLOL TARTRATE 25 MG TABLET (FP) ONE (08:24)
[2023-04-24] MEDS ORDERED: LISINOPRIL 5 MG TABLET ONE (08:25)
[2023-04-24] MEDS ORDERED: APIXABAN 5 MG TABLET ONE (08:25)
[2023-04-24] MEDS ORDERED: ASPIRIN 81 MG CHEWABLE TABLETS ONE (08:25)
[2023-04-24] MEDS: ASPIRIN COATED 81 MG TABLET.EC PO SCH ×2 (08:35→09:24)
[2023-04-24] MEDS: METOPROLOL TARTRATE 25 MG TABLET (FP) PO SCH ×3 (08:35→22:26)
[2023-04-24] MEDS: LISINOPRIL 5 MG TABLET PO SCH ×2 (08:35→09:24)
[2023-04-24] MEDS: APIXABAN 5 MG TABLET PO SCH ×3 (08:35→22:26)
[2023-04-24] MEDS ORDERED: morphine SULFATE 4 MG/ML VIAL IVPUSH PRN (09:50)
[2023-04-24] MEDS ORDERED: morphine SULFATE 4 MG/ML VIAL ONE (10:18)
[2023-04-24 10:40] LABS: URINE APPEARANCE CLEAR; URINE BILIRUBIN NEGATIVE (NEGATIVE); URINE COLOR YELLOW; URINE GLUCOSE (UA) NEGATIVE (NEGATIVE); URINE KETONE NEGATIVE (NEGATIVE); URINE LEUK ESTERASE NEGATIVE (NEGATIVE); URINE NITRITE NEGATIVE (NEGATIVE); URINE PROTEIN NEGATIVE (NEGATIVE); URINE UROBILINOGEN 0.2 mg/dL (0.2-1.0)
[2023-04-24] MEDS: GABAPENTIN 300 MG CAPSULE PO SCH ×2 (15:18→22:26)
[2023-04-24] MEDS ORDERED: GABAPENTIN 300 MG CAPSULE ONE (15:20)
[2023-04-24] MEDS ORDERED: ATORVASTATIN CA 40 MG TABLET (FP) PO SCH (22:00)
[2023-04-24 22:49] VITALS: BMI 31.9
[2023-04-25] MEDS: GABAPENTIN 300 MG CAPSULE PO SCH ×3 (06:13→21:31)
[2023-04-25] MEDS: TAMSULOSIN HCL 0.4 MG CAP PO SCH (08:26)
[2023-04-25] MEDS ORDERED: TAMSULOSIN HCL 0.4 MG CAP PO SCH (08:30)
[2023-04-25] MEDS ORDERED: AZITHROMYCIN IVPB 500 MG/250 ML BAG IVPB SCH ×2 (10:00)
[2023-04-25] MEDS ORDERED: CEFTRIAXONE 1 GM in DEXTROSE 5%-WATER - 50 ML IVPB SCH (10:00)
[2023-04-25] MEDS: AZITHROMYCIN IVPB 500 MG/250 ML BAG IVPB SCH (10:13)
[2023-04-25] MEDS: ASPIRIN COATED 81 MG TABLET.EC PO SCH (10:24)
[2023-04-25] MEDS: APIXABAN 5 MG TABLET PO SCH ×2 (10:24→21:31)
[2023-04-25] MEDS: LISINOPRIL 5 MG TABLET PO SCH (10:24)
[2023-04-25] MEDS: CEFTRIAXONE 1 GM in DEXTROSE 5%-WATER - 50 ML IVPB SCH (10:24)
[2023-04-25] MEDS: METOPROLOL TARTRATE 25 MG TABLET (FP) PO SCH ×2 (10:24→21:31)
[2023-04-25] MEDS: ATORVASTATIN CA 40 MG TABLET (FP) PO SCH (21:31)
[2023-04-26] MEDS: GABAPENTIN 300 MG CAPSULE PO SCH ×3 (06:08→21:25)
[2023-04-26] MEDS: METOPROLOL TARTRATE 25 MG TABLET (FP) PO SCH ×2 (09:06→21:25)
[2023-04-26] MEDS: APIXABAN 5 MG TABLET PO SCH ×2 (09:06→21:25)
[2023-04-26] MEDS: LISINOPRIL 5 MG TABLET PO SCH (09:06)
[2023-04-26] MEDS: ASPIRIN COATED 81 MG TABLET.EC PO SCH (09:06)
[2023-04-26] MEDS: TAMSULOSIN HCL 0.4 MG CAP PO SCH (09:07)
[2023-04-26] MEDS: CEFTRIAXONE 1 GM in DEXTROSE 5%-WATER - 50 ML IVPB SCH (09:09)
[2023-04-26] MEDS: AZITHROMYCIN IVPB 500 MG/250 ML BAG IVPB SCH (09:24)
[2023-04-26] MEDS: ATORVASTATIN CA 40 MG TABLET (FP) PO SCH (21:25)
[2023-04-27] MEDS: GABAPENTIN 300 MG CAPSULE PO SCH ×3 (06:15→22:32)
[2023-04-27] MEDS: TAMSULOSIN HCL 0.4 MG CAP PO SCH (08:41)
[2023-04-27 09:24] LABS: BASO % 1.3 % (0-2.0); HEMATOCRIT 43.5 % (35.4-49); HEMOGLOBIN 14.5 GM/dL (11.7-16.9); LYMPH % 29.5 % (8-40); MCH 26.9 pg (25.7-33.7); MCHC 33.3 g/dl (32.0-35.9); MEAN CELL VOLUME 80.7 fl (80-96); MEAN PLT VOLUME 8.3 fl (7.5-11.1); MONO % 6.5 % (3.8-10.2); NEUT % 59.7 % (42.8-82.8); PLATELET COUNT 340 10^3/uL (134-434); RBC 5.39 M/mm3 (4.00-5.60); RDW 14.5 % (11.9-15.9); WHITE BLOOD COUNT 8.1 K/mm3 (4.0-10.0)
[2023-04-27] MEDS: METOPROLOL TARTRATE 25 MG TABLET (FP) PO SCH ×2 (09:52→22:32)
[2023-04-27] MEDS: ASPIRIN COATED 81 MG TABLET.EC PO SCH (09:54)
[2023-04-27] MEDS: LISINOPRIL 5 MG TABLET PO SCH (09:54)
[2023-04-27] MEDS: APIXABAN 5 MG TABLET PO SCH ×2 (09:55→22:33)
[2023-04-27] MEDS: CEFTRIAXONE 1 GM in DEXTROSE 5%-WATER - 50 ML IVPB SCH (10:02)
[2023-04-27] MEDS: AZITHROMYCIN IVPB 500 MG/250 ML BAG IVPB SCH (10:05)
[2023-04-27 14:22] VITALS: RESP 18
[2023-04-27] MEDS: ATORVASTATIN CA 40 MG TABLET (FP) PO SCH (22:32)
[2023-04-28] MEDS: GABAPENTIN 300 MG CAPSULE PO SCH (06:49)
[2023-04-28] MEDS: TAMSULOSIN HCL 0.4 MG CAP PO SCH (08:23)
[2023-04-28] MEDS: ASPIRIN COATED 81 MG TABLET.EC PO SCH (09:36)
[2023-04-28] MEDS: METOPROLOL TARTRATE 25 MG TABLET (FP) PO SCH (09:36)
[2023-04-28] MEDS: APIXABAN 5 MG TABLET PO SCH (09:36)
[2023-04-28] MEDS: LISINOPRIL 5 MG TABLET PO SCH (09:36)
[2023-04-28] MEDS ORDERED: CEFUROXIME AXETIL 500 MG TABLET PO SCH (10:00)
[2023-04-28 12:32] VITALS: BP 122/84; PULSE 67; TEMP 97.9
== END 2023-04-28 13:54 | disposition home or self-care (01) | DRG 139 ==
LOC: JER 21:56 → JERBED 04-24 05:41 → J6S 04-24 21:41
PROVIDERS: ADMIT Family Medicine; ATTEND Family Medicine
DX: J18.9 Pneumonia, unspecified organism (principal); I25.10 Atherosclerotic heart disease of native coronary artery without angina pectoris; I10 Essential (primary) hypertension; E78.5 Hyperlipidemia, unspecified; Z86.718 Personal history of other venous thrombosis and embolism; Z79.01 Long term (current) use of anticoagulants; J90 Pleural effusion, not elsewhere classified; E87.8 Other disorders of electrolyte and fluid balance, not elsewhere classified
CPT/HCPCS: 0241U-QW; 36415; 71045-TC-FY; 71275-TC; 74177-TC; 80053; 80061; 81003; 82962; 83690; 84484; 85025; 85610; 85730; 86850; 86900; 86901; 87040; 87086; 87899; 93005; 93010; 99285-25

== ENCOUNTER 2024-05-06 20:41 | Emergency (ER) | payer OTHER ==
[2024-05-06 20:49] VITALS: RESP 20; TEMP 98.5; BMI 31.6
[2024-05-06] MEDS ORDERED: morphine SULFATE 4 MG/ML VIAL ONE (21:39)
[2024-05-06 21:46] LABS: BASO % 0.6 % (0-2.0); EOS % 1.5 % (0-4.5); HEMATOCRIT 43.9 % (35.4-49); LYMPH % 32.2 % (8-40); MCH 26.4 pg (25.7-33.7); MCHC 31.9 g/dl (32.0-35.9); MEAN CELL VOLUME 82.7 fl (80-96); MEAN PLT VOLUME 8.3 fl (7.5-11.1); MONO % 9.1 % (3.8-10.2); NEUT % 56.6 % (42.8-82.8); PLATELET COUNT 284 10^3/uL (134-434); RDW 14.5 % (11.9-15.9); WHITE BLOOD COUNT 11.5 K/mm3 (4.0-10.0)
[2024-05-06] MEDS: morphine CARPU-JECT 4 MG/1 ML DISP.SYRIN IVPUSH ONE (21:46)
[2024-05-06 22:10] LABS: POTASSIUM 4.7 mmol/L (3.5-5.1)
[2024-05-06 22:13] LABS: ALBUMIN 3.5 g/dl (3.4-5.0); CALCIUM 9.5 mg/dL (8.5-10.1)
[2024-05-06 22:18] LABS: BILIRUBIN,TOTAL 0.3 mg/dL (0.2-1)
[2024-05-07] MEDS ORDERED: CYCLOBENZAPRINE HCL 5 MG TABLET ONE (00:41)
[2024-05-07] MEDS ORDERED: ACETAMINOPHEN 325 MG TABLET (FP) ONE (00:41)
[2024-05-07] MEDS: CYCLOBENZAPRINE HCL 10 MG TABLET (FP) PO ONE (00:45)
[2024-05-07] MEDS: ACETAMINOPHEN 325 MG TABLET (FP) PO ONE (00:45)
[2024-05-07 00:53] VITALS: BP 132/83; PULSE 65
== END 2024-05-07 01:36 | disposition home or self-care (01) ==
LOC: JER 20:41
PROC: 3E033NZ Introduction of Analgesics, Hypnotics, Sedatives into Peripheral Vein, Percutaneous Approach (ICD-10-PCS; principal; 2024-05-06)
DX: M79.661 Pain in right lower leg (principal); W50.0XXA Accidental hit or strike by another person, initial encounter; Y99.0 Civilian activity done for income or pay
CPT/HCPCS: 36415; 73590-TC-RT-FY; 73706-TC-RT; 80053; 82550; 82553; 83735; 85025; 99285-25; Q9967